=== PATIENT | male | born 1960 | race Caucasian/White ===

== ENCOUNTER 2018-09-28 08:42 | Inpatient (IN) | payer MEDICARE, MEDICAID ==
--- NOTE | 2018-09-28 08:56 | ED Physician Chart ---
ED Chief Complaint/HPI - Patient Information Date Seen:: 09/28/18 Time Seen:: 08:50 Chief Complaint:: agitation History of Present Illness:: this is a 58 yo male [facility] and treatment because of increase agitation. Allergies:: Allergies Allergy/AdvReac Type Severity Reaction Status Date / Time Sulfa (Sulfonamide Allergy Verified 09/28/18 08:47 Antibiotics) thioridazine [From Mellaril] Allergy Verified 09/28/18 08:47 Historian:: EMS, Medical Records Review:: Nurse's Note Reviewed, Transfer documents Reviewed, Patient unable to respond ED Review of Systems - Review of Systems General/Constitutional: No fever, No chills, No weight loss, No weakness, No diaphoresis, No edema, No loss of appetite, Other (this patient is unable to give a review of systems.) Skin: No skin lesions, No rash, No bruising Head: No headache, No light-headedness Eyes: No loss of vision, No pain, No diplopia ENT: No earache, No nasal drainage, No sore throat, No tinnitus Neck: No neck pain, No swelling, No thyromegaly, No stiffness, No mass noted Cardio Vascular: No chest pain, No palpitations, No PND, No orthopnea, No edema Pulmonary: No SOB, No cough, No sputum, No wheezing GI: No nausea, No vomiting, No diarrhea, No pain, No melena, No hematochezia, No constipation, No hematemesis G/U: No dysuria, No frequency, No hematuria Musculoskeletal: No bone or joint pain, No back pain, No muscle pain Endocrine: No polyuria, No polydipsia Psychiatric: No prior psych history, No depression, No anxiety, No suicidal ideation Hematopoietic: No bruising, No lymphadenopathy Allergic/Immuno: No urticaria, No angioedema Neurological: No syncope, No focal symptoms, No weakness, No paresthesia, No headache, No seizure, No dizziness, No confusion, No vertigo ED Past Medical History - Past Medical History Obtainable: Yes Past Medical History: Seizures, Dementia Family History: None Social History: Non Smoker, No Alcohol, No Drug Use, Single Surgical History: other (fistula surgery) Psychiatricy History: Dementia Medication: Reviewed Family Medical History - Family Member Mother History Unknown: Yes ED Physical Exam - Physical Examination General/Constitutional: Awake, Well-developed, well-nourished, Alert, No distress, GCS 15, Non-toxic appearing, Ambulatory Other Gen/Cons comments:: mentally disconnected Head: Atraumatic Eyes: Lids, conjuctiva normal, PERRL, EOMI Skin: Nl inspection, No rash, No skin lesions, No ecchymosis, Well hydrated, No lymphadenopathy ENMT: External ears, nose nl, Nasal exam nl, Lips, teeth, gums nl Neck: Nontender, Full ROM w/o pain, No JVD, No nuchal rigidity, No bruit, No mass, No stridor Respiratory: Nl effort/Exclusion, Clear to Auscultation, No Wheeze/Rhonchi/Rales Cardio Vascular: RRR, No murmur, gallop, rubs, NL S1 S2 GI: No tenderness/rebounding/guarding, No organomegaly, No hernia, Normal BS's, Nondistended, No mass/bruits, No McBurney tenderness : No CVA tenderness Extremities: No tenderness or effusion, Full ROM, normal strength in all extremities, No edema, Normal digits & nails Neuro/Psych: Alert/oriented, DTR's symmetric, Normal sensory exam, Normal motor strength, Judgement/insight normal (no judgement/insight ), Mood normal, Normal gait, No focal deficits Misc: Normal back, No paraspinal tenderness ED Labs/Radiology/EKG Results - Lab Results Results: Abnormal Lab Results 09/28/18 09/28/18 09/28/18 09:00 09:00 09:00 WBC 7.3 RBC 3.81 L Hgb 12.3 Hct 36.3 L MCV 95.0 MCH 32.2 H MCHC Differential 33.8 RDW 12.5 Plt Count 314 MPV 7.1 Neutrophils % 66.3 Lymphocytes % 22.1 Monocytes % 9.0 Eosinophils % 1.6 Basophils % 1.0 PT 10.6 INR 1.02 PTT (Actin FS) 29.3 Sodium 132 L Potassium 3.2 L Chloride 100 Carbon Dioxide 23.8 Anion Gap 11.4 BUN 14 Creatinine 1.5 H Est GFR ( Amer) > 60.0 Est GFR (Non-Af Amer) 50.9 BUN/Creatinine Ratio 9.3 Glucose 130 H Calcium 8.7 Total Bilirubin 0.3 AST 9 L ALT 6 L Alkaline Phosphatase 119 H Troponin I Total Protein 6.3 Albumin 3.7 L Globulin 2.6 Albumin/Globulin Ratio 1.4 09/28/18 09:00 WBC RBC Hgb Hct MCV MCH MCHC Differential RDW Plt Count MPV Neutrophils % Lymphocytes % Monocytes % Eosinophils % Basophils % PT INR PTT (Actin FS) Sodium Potassium Chloride Carbon Dioxide Anion Gap BUN Creatinine Est GFR ( Amer) Est GFR (Non-Af Amer) BUN/Creatinine Ratio Glucose Calcium Total Bilirubin AST ALT Alkaline Phosphatase Troponin I 0.01 Total Protein Albumin Globulin Albumin/Globulin Ratio - Radiology Results Results: chest x-ray = nad - EKG Interpretations EKG Time:: 08:49 Rate & Rhythm: 81, sinus [place]: left ED Assessment - Assessment General Assessment: dementia agitation ED Septic Shock - . Is Septic Shock (SBP<90, OR Lactate>4 mmol\L) present?: No ED Reassessment (Disposition) - Reassessment Reassessment Condition:: Unchanged - Diagnosis Diagnosis:: agitation dementia seizure disorder - Patient Disposition Discharge/Transfer:: Acute Care w/in this hosp Admitting Medical Physician:: Jose Gonzáles Admitting Psych Physician:: Linnette Umana Condition at Disposition:: Unchanged
[2018-09-28 09:07] LABS: % EOSINOPHILS 1.6 % (0.0-5.0); % LYMPHOCYTES 22.1 % (20.0-50.0); % NEUTROPHILS 66.3 % (40.0-80.0); BASOPHILE ABSOLUTE 0.1 Th/cumm (0-0.2); EOSINOPHILE ABSOLUTE 0.1 Th/cmm (0.1-0.4); HEMATOCRIT 36.3 % (41.0-60); HEMOGLOBIN 12.3 gm/dL (12-16); LYMPHOCYTE ABSOLUTE 1.6 Th/cmm (1.5-3.0); MEAN CORPUSCULAR HEMOGLOBIN 32.2 pg (26.0-30.0); MEAN CORPUSCULAR HGB CONC 33.8 pg (28.0-36.0); MEAN PLATELET VOLUME 7.1 fl; MONOCYTE ABSOLUTE 0.7 Th/cmm (0.3-1.0); NEUTROPHILE ABSOLUTE 4.8 Th/cmm (1.8-8.0); PLATELET COUNT 314 Th/cmm (150-400); RED BLOOD COUNT 3.81 Mil/cmm (4.30-5.70); RED CELL DISTRIBUTION WIDTH 12.5 % (11.5-20.0); WHITE BLOOD COUNT 7.3 Th/cmm (4.8-10.8)
--- NOTE | 2018-09-28 09:12 | Diagnostic Imaging Report ---
Portable chest x-ray HISTORY: Cough Heart size difficult to assess with portable technique in a poor inspiration, but appears generous. No focal pulmonary processes. No hilar or mediastinal abnormalities. IMPRESSION: 1. No acute focal pulmonary processes 2. Question cardiomegaly
[2018-09-28 09:23] LABS: INR 1.02 (0.5-1.4); PROTHROMBIN TIME (TEST) 10.6 SECONDS (9.5-11.5)
[2018-09-28 09:25] LABS: ALB/GLOB RATIO 1.4 (1.0-1.8); ALBUMIN 3.7 gm/dL (4.2-5.5); ALKALINE PHOSPHATASE 119 U/L (34-104); ANION GAP 11.4 (7.0-16.0); BILIRUBIN,TOTAL 0.3 mg/dL (0.3-1.0); BUN - UREA NITROGEN 14 mg/dL (7-25); CALCIUM SERUM 8.7 mg/dL (8.6-10.3); CARBON DIOXIDE 23.8 mEq/L (21.0-31.0); CHLORIDE 100 mEq/L (98-107); CREATININE - SERUM 1.5 mg/dL (0.7-1.3); GFR AFRICAN-AMERICAN > 60.0 ml/min (>90); GFR NON AFRICAN-AMERICAN 50.9 ml/min; GLUCOSE 130 mg/dL (70-105); POTASSIUM SERUM 3.2 mEq/L (3.5-5.1); SGOT 9 U/L (13-39); SGPT/ALT 6 U/L (7-52); SODIUM SERUM 132 mEq/L (136-145); TOTAL PROTEIN,SERUM 6.3 gm/dL (6.0-8.3)
[2018-09-28 09:43] LABS: URINE SOURCE CLEAN C
[2018-09-28 09:50] LABS: URINE BILIRUBIN SMALL (NEGATIVE); URINE BLOOD NEGATIVE (NEGATIVE); URINE GLUCOSE (UA) NEGATIVE (NEGATIVE); URINE KETONE NEGATIVE (NEGATIVE); URINE LEUKOCYTE ESTERASE LARGE (NEGATIVE); URINE MICROSCOPIC INDICATED? YES; URINE NITRATE POSITIVE (NEGATIVE); URINE PROTEIN NEGATIVE (NEGATIVE); URINE UROBILINOGEN 0.2 E.U./dL (0.2 - 1.0)
[2018-09-28] MEDS ORDERED: Potassium Chloride Elixir 20 mEq /15 mL UDC PO ONE (10:26)
[2018-09-28] MEDS ORDERED: Potassium Chloride Elixir 20 mEq /15 mL UDC ONE (10:32)
[2018-09-28 10:49] LABS: URINE COLOR YELLOW
[2018-09-28 10:50] LABS: URINE CLARITY CLOUDY (CLEAR)
[2018-09-28 11:18] LABS: URINE BACTERIA FEW /hpf (NONE SEEN); URINE EPITHELIAL CELLS FEW /lpf (FEW); URINE RBC 0-2 /hpf (0-5)
[2018-09-28 11:42] VITALS: BP 112/76
[2018-09-28] MEDS ORDERED: Pneumococcal Vaccine 0.5 mL Vial IM ONE (11:56)
[2018-09-28] MEDS ORDERED: Maalox 30 mL Cup PO PRN (12:12)
[2018-09-28] MEDS ORDERED: Magnesium Hydroxide (MOM) 30 mL UDC PO PRN (12:12)
[2018-09-28 12:23] LABS: CHOLESTEROL 223 mg/dL (<200); HDL -HIGH DENSITY LIPOPROTEIN 58 mg/dL (23-92); TRIGLYCERIDES 88 mg/dL (<150)
--- NOTE | 2018-09-28 13:44 | History & Physical ---
ADMIT DATE: 09/28/2018 CHIEF COMPLAINT: Agitation. HISTORY OF PRESENT ILLNESS: This is a 58-year-old male, long term resident, admitted to the Geropsych Unit due to 1-day history of agitation. PAST MEDICAL HISTORY: Seizures, dementia. FAMILY HISTORY: Noncontributory. SOCIAL HISTORY: The patient is a long term resident requiring 24-hour nursing care. PAST SURGICAL HISTORY: Fistula surgery. MEDICATIONS: See medication list. REVIEW OF SYSTEMS: Unable to obtain, the patient is confused. PHYSICAL EXAMINATION: GENERAL: The patient is well developed, well nourished, in no apparent distress, awake, confused. VITAL SIGNS: Temperature 99.2, heart rate 90, blood pressure 125/83, respirations 17, O2 of 98%. HEENT: Head normocephalic, atraumatic. NECK: Supple. No mass. LUNGS: Clear bilaterally. HEART: Regular rhythm. ABDOMEN: Soft, nontender. LABORATORY DATA: WBC 7.2, H and H 12.3 and 36.3, platelet of 314. Sodium 132, potassium 3.2, chloride 100, BUN 14, creatinine 1.5. The patient had a urinalysis done, positive for UTI. DIAGNOSTICS: The patient had a chest x-ray done, impression is no focal pulmonary process, question cardiomegaly. ASSESSMENT: Agitation, hypertension, dementia, acute urinary tract infection. PLAN: We will add Levaquin to treat the patient's UTI. Fall precautions will be initiated. Seizure precautions as well. Continue to monitor this patient. JOB# [id number]
[2018-09-29] MEDS: Multivitamin Tab PO SCH (09:44)
--- NOTE | 2018-09-29 14:42 | Internal Medicine Prog Note ---
Internal Medicine Subjective - Subjective Service Date: 09/29/18 Patient seen and examined:: with staff Patient is:: awake, verbal Per staff patient has:: tolerating meds Internal Medicine Objective - Results Result Diagrams: 09/28/18 09:00 09/28/18 09:00 Recent Labs: Laboratory Last Values WBC 7.3 Th/cmm (4.8-10.8) 09/28/18 09:00 RBC 3.81 Mil/cmm (4.30-5.70) L 09/28/18 09:00 Hgb 12.3 gm/dL (12-16) 09/28/18 09:00 Hct 36.3 % (41.0-60) L 09/28/18 09:00 MCV 95.0 fl (80-99) 09/28/18 09:00 MCH 32.2 pg (26.0-30.0) H 09/28/18 09:00 MCHC Differential 33.8 pg (28.0-36.0) 09/28/18 09:00 RDW 12.5 % (11.5-20.0) 09/28/18 09:00 Plt Count 314 Th/cmm (150-400) 09/28/18 09:00 MPV 7.1 fl 09/28/18 09:00 Neutrophils % 66.3 % (40.0-80.0) 09/28/18 09:00 Lymphocytes % 22.1 % (20.0-50.0) 09/28/18 09:00 Monocytes % 9.0 % (2.0-10.0) 09/28/18 09:00 Eosinophils % 1.6 % (0.0-5.0) 09/28/18 09:00 Basophils % 1.0 % (0.0-2.0) 09/28/18 09:00 PT 10.6 SECONDS (9.5-11.5) 09/28/18 09:00 INR 1.02 (0.5-1.4) 09/28/18 09:00 PTT (Actin FS) 29.3 SECONDS (26.0-38.0) 09/28/18 09:00 Sodium 132 mEq/L (136-145) L 09/28/18 09:00 Potassium 3.2 mEq/L (3.5-5.1) L 09/28/18 09:00 Chloride 100 mEq/L (98-107) 09/28/18 09:00 Carbon Dioxide 23.8 mEq/L (21.0-31.0) 09/28/18 09:00 Anion Gap 11.4 (7.0-16.0) 09/28/18 09:00 BUN 14 mg/dL (7-25) 09/28/18 09:00 Creatinine 1.5 mg/dL (0.7-1.3) H 09/28/18 09:00 Est GFR ( Amer) > 60.0 ml/min (>90) 09/28/18 09:00 Est GFR (Non-Af Amer) 50.9 ml/min 09/28/18 09:00 BUN/Creatinine Ratio 9.3 09/28/18 09:00 Glucose 130 mg/dL (70-105) H 09/28/18 09:00 Calcium 8.7 mg/dL (8.6-10.3) 09/28/18 09:00 Total Bilirubin 0.3 mg/dL (0.3-1.0) 09/28/18 09:00 AST 9 U/L (13-39) L 09/28/18 09:00 ALT 6 U/L (7-52) L 09/28/18 09:00 Alkaline Phosphatase 119 U/L (34-104) H 09/28/18 09:00 Troponin I 0.01 ng/mL (0.01-0.05) 09/28/18 09:00 Total Protein 6.3 gm/dL (6.0-8.3) 09/28/18 09:00 Albumin 3.7 gm/dL (4.2-5.5) L 09/28/18 09:00 Globulin 2.6 gm/dL 09/28/18 09:00 Albumin/Globulin Ratio 1.4 (1.0-1.8) 09/28/18 09:00 Triglycerides 88 mg/dL (<150) 09/28/18 09:30 Cholesterol 223 mg/dL (<200) H 09/28/18 09:30 LDL Cholesterol Direct 159 mg/dL (75-193) 09/28/18:30 HDL Cholesterol 58 mg/dL (23-92) 09/28/18 09:30 TSH 1.31 uIU/ml (0.34-5.60) 09/28/18 09:00 Urine Source CLEAN C 09/28/18 09:36 Urine Color YELLOW 09/28/18 09:36 Urine Clarity CLOUDY (CLEAR) 09/28/18 09:36 Urine pH 6.0 (4.6 - 8.0) 09/28/18 09:36 Ur Specific [place] 1.010 (1.005-1.030) 09/28/18 09:36 Urine Protein NEGATIVE mg/dL (NEGATIVE) 09/28/18 09:36 Urine Glucose (UA) NEGATIVE mg/dL (NEGATIVE) 09/28/18 09:36 Urine Ketones NEGATIVE mg/dL (NEGATIVE) 09/28/18 09:36 Urine Blood NEGATIVE (NEGATIVE) 09/28/18 09:36 Urine Nitrate POSITIVE (NEGATIVE) H 09/28/18 09:36 Urine Bilirubin SMALL (NEGATIVE) H 09/28/18 09:36 Urine Urobilinogen 0.2 E.U./dL (0.2 - 1.0) 09/28/18 09:36 Ur Leukocyte Esterase LARGE (NEGATIVE) H 09/28/18 09:36 Urine RBC 0-2 /hpf (0-5) H 09/28/18 09:36 Urine WBC 2-5 /hpf (0-5) 09/28/18 09:36 Ur Epithelial Cells FEW /lpf (FEW) 09/28/18 09:36 Urine Bacteria FEW /hpf (NONE SEEN) 09/28/18 09:36 - Physical Exam Vitals and I&O: Vital Signs Temp 97.5 F 09/28/18 21:11 Pulse 69 09/28/18 21:11 Resp 18 09/28/18 21:11 BP 136/70 09/28/18 21:11 Pulse Ox 97 09/28/18 21:11 Intake & Output 09/28/18 09/29/18 09/29/18 18:59 06:59 18:59 Intake Total 240 Balance 240 Weight (lbs) 170 lb Intake: Oral 240 Other: # Voids 2 Weight Source Estimated Active Medications: Current Medications Acetaminophen (Tylenol) 650 mg PO Q4HR PRN PRN Reason: Mild Pain / Temp above 100 Stop: 11/27/18 12:11 Al Hydrox/Mg Hydrox/Simethicone (Maalox) 30 ml PO Q4HR PRN PRN Reason: GI DISTRESS Stop: 11/27/18 12:11 Chlorpromazine (Thorazine) 200 mg PO BID [facility] Stop: 11/28/18 08:59 Last Admin: 09/29/18 09:43 Dose: 200 mg Escitalopram Oxalate (Lexapro) 10 mg PO DAILY [facility]; Protocol Stop: 11/28/18 08:59 Last Admin: 09/29/18 09:44 Dose: 10 mg Folic Acid (Folate) 1 mg PO DAILY [facility] Stop: 11/28/18 08:59 Last Admin: 09/29/18 09:44 Dose: 1 mg Levofloxacin (Levaquin) 500 mg PO DAILY [facility] Stop: 10/05/18 08:59 Last Admin: 09/29/18 09:43 Dose: 500 mg Lorazepam (Ativan) 0.5 mg PO Q6HR PRN; Protocol PRN Reason: Agitation Stop: 11/27/18 12:09 Magnesium Hydroxide (Milk Of Magnesia) 30 ml PO HS PRN PRN Reason: Constipation Multivitamins/Vitamin C (Theragran) 1 tab PO DAILY [facility] Stop: 11/28/18 08:59 Last Admin: 09/29/18 09:44 Dose: 1 tab Mupirocin (Bactroban Oint) 1 appl NS BID [facility] Stop: 10/04/18 09:01 Phenobarbital (Phenobarbital) 97.2 mg PO BID [facility] Stop: 11/27/18 16:59 Last Admin: 09/29/18 09:44 Dose: 97.2 mg Promethazine HCl (Phenergan) 6.25 mg PO Q4H PRN PRN Reason: Cough Stop: 11/27/18 12:02 Quetiapine Fumarate (Seroquel) 200 mg PO BID [facility]; Protocol Stop: 11/29/18 08:59 Topiramate (Topamax) 100 mg PO BID [facility] Stop: 11/27/18 16:59 Last Admin: 09/29/18 09:44 Dose: 100 mg Zolpidem Tartrate (Ambien) 5 mg PO HS PRN PRN Reason: Insomnia Stop: 11/27/18 12:11 General: alert HEENT: NC/AT, PERRLA Neck: Supple Lungs: CTAB Cardiovascular: RRR, Normal S1, Normal S2 Abdomen: soft, non-tender, non-distended Neurological: alert Internal Medicine Assmt/Plan - Assessment Assessment: ASSESSMENT: Agitation, hypertension, dementia, acute urinary tract infection. . - Plan Plan: PLAN: We will add Levaquin to treat the patient's UTI. Fall precautions will be initiated. Seizure precautions as well. Continue to monitor this patient
--- NOTE | 2018-09-29 18:33 | Psychiatric Evaluation ---
DATE OF SERVICE: 09/29/2018 HISTORY OF PRESENT ILLNESS: A 58-year-old male coming from [facility], increased agitation, seems to have history of developmental disability, autism spectrum per staff. The patient is repetitive, ruminative "look at my toenails, look at my toenails, look at my toenails, look at my toenails, look at my toenails," that is all he says. PAST PSYCHIATRIC HISTORY: Developmental disability, possibly dementia. It is unclear. FAMILY HISTORY: Noncontributory. SOCIAL HISTORY: Coming in from a [facility] facility. It is unclear what is the family's involvement there is. We will try to increase collateral. MEDICATIONS: Noted. MENTAL STATUS EXAMINATION: Stated age, repetitive, poorly oriented, not even able to tell me his name. I have to have staff confirmed that this is the correct patient, ruminative, disorganized, disoriented. No overt SI or HI, unclear psychotic symptoms. Poor impulse control. Concerns about impulsivity, striking out behaviors. PROVISIONAL DIAGNOSES: Anxiety, unspecified. Concerns for developmental disability, rule out dementia. Autism spectrum psychosis, unspecified; mood, unspecified. Under medical: Please see full H and P. ESTIMATED LENGTH OF STAY: 7-10 days. ASSESSMENT: The patient is aggressive, combative, impulsive, not safe for a lower level of care. PLAN: We will continue to monitor. Treatment plan includes group as well as milieu therapy. We will make appropriate medication adjustments. CONDITIONS FOR DISCHARGE: Improved mood, improved affect, better control of any agitation and aggressive behaviors. [facility]# [id number]
[2018-09-30] MEDS: Multivitamin Tab PO SCH (08:53)
--- NOTE | 2018-09-30 15:30 | Internal Medicine Prog Note ---
Internal Medicine Subjective - Subjective Patient seen and examined:: with staff, chart reviewed Patient is:: awake, verbal, interactive Per staff patient has:: no adverse event, no episodes of fall, eating well, tolerating meds Internal Medicine Objective - Results Result Diagrams: 09/28/18 09:00 09/28/18 09:00 Recent Labs: Laboratory Last Values WBC 7.3 Th/cmm (4.8-10.8) 09/28/18 09:00 RBC 3.81 Mil/cmm (4.30-5.70) L 09/28/18 09:00 Hgb 12.3 gm/dL (12-16) 09/28/18 09:00 Hct 36.3 % (41.0-60) L 09/28/18 09:00 MCV 95.0 fl (80-99) 09/28/18 09:00 MCH 32.2 pg (26.0-30.0) H 09/28/18 09:00 MCHC Differential 33.8 pg (28.0-36.0) 09/28/18 09:00 RDW 12.5 % (11.5-20.0) 09/28/18 09:00 Plt Count 314 Th/cmm (150-400) 09/28/18 09:00 MPV 7.1 fl 09/28/18 09:00 Neutrophils % 66.3 % (40.0-80.0) 09/28/18 09:00 Lymphocytes % 22.1 % (20.0-50.0) 09/28/18 09:00 Monocytes % 9.0 % (2.0-10.0) 09/28/18 09:00 Eosinophils % 1.6 % (0.0-5.0) 09/28/18 09:00 Basophils % 1.0 % (0.0-2.0) 09/28/18 09:00 PT 10.6 SECONDS (9.5-11.5) 09/28/18 09:00 INR 1.02 (0.5-1.4) 09/28/18 09:00 PTT (Actin FS) 29.3 SECONDS (26.0-38.0) 09/28/18 09:00 Sodium 132 mEq/L (136-145) L 09/28/18:00 Potassium 3.2 mEq/L (3.5-5.1) L 09/28/18 09:00 Chloride 100 mEq/L (98-107) 09/28/18 09:00 Carbon Dioxide 23.8 mEq/L (21.0-31.0) 09/28/18 09:00 Anion Gap 11.4 (7.0-16.0) 09/28/18 09:00 BUN 14 mg/dL (7-25) 09/28/18 09:00 Creatinine 1.5 mg/dL (0.7-1.3) H 09/28/18 09:00 Est GFR ( Amer) > 60.0 ml/min (>90) 09/28/18 09:00 Est GFR (Non-Af Amer) 50.9 ml/min 09/28/18 09:00 BUN/Creatinine Ratio 9.3 09/28/18 09:00 Glucose 130 mg/dL (70-105) H 09/28/18 09:00 Calcium 8.7 mg/dL (8.6-10.3) 09/28/18 09:00 Total Bilirubin 0.3 mg/dL (0.3-1.0) 09/28/18 09:00 AST 9 U/L (13-39) L 09/28/18 09:00 ALT 6 U/L (7-52) L 09/28/18 09:00 Alkaline Phosphatase 119 U/L (34-104) H 09/28/18 09:00 Troponin I 0.01 ng/mL (0.01-0.05) 09/28/18 09:00 Total Protein 6.3 gm/dL (6.0-8.3) 09/28/18 09:00 Albumin 3.7 gm/dL (4.2-5.5) L 09/28/18 09:00 Globulin 2.6 gm/dL 09/28/18 09:00 Albumin/Globulin Ratio 1.4 (1.0-1.8) 09/28/18 09:00 Triglycerides 88 mg/dL (<150) 09/28/18 09:30 Cholesterol 223 mg/dL (<200) H 09/28/18 09:30 LDL Cholesterol Direct 159 mg/dL (75-193) 09/28/18 09:30 HDL Cholesterol 58 mg/dL (23-92) 09/28/18 09:30 TSH 1.31 uIU/ml (0.34-5.60) 09/28/18 09:00 Urine Source CLEAN C 09/28/18 09:36 Urine Color YELLOW 09/28/18 09:36 Urine Clarity CLOUDY (CLEAR) 09/28/18 09:36 Urine pH 6.0 (4.6 - 8.0) 09/28/18 09:36 Ur Specific [place] 1.010 (1.005-1.030) 09/28/18 09:36 Urine Protein NEGATIVE mg/dL (NEGATIVE) 09/28/18 09:36 Urine Glucose (UA) NEGATIVE mg/dL (NEGATIVE) 09/28/18 09:36 Urine Ketones NEGATIVE mg/dL (NEGATIVE) 09/28/18 09:36 Urine Blood NEGATIVE (NEGATIVE) 09/28/18 09:36 Urine Nitrate POSITIVE (NEGATIVE) H 09/28/18 09:36 Urine Bilirubin SMALL (NEGATIVE) H 09/28/18 09:36 Urine Urobilinogen 0.2 E.U./dL (0.2 - 1.0) 09/28/18 09:36 Ur Leukocyte Esterase LARGE (NEGATIVE) H 09/28/18 09:36 Urine RBC 0-2 /hpf (0-5) H 09/28/18 09:36 Urine WBC 2-5 /hpf (0-5) 09/28/18 09:36 Ur Epithelial Cells FEW /lpf (FEW) 09/28/18 09:36 Urine Bacteria FEW /hpf (NONE SEEN) 09/28/18 09:36 - Physical Exam Vitals and I&O: Vital Signs Temp 96.3 F 09/30/18 14:13 Pulse 90 09/30/18 14:13 Resp 20 09/30/18 14:13 BP 126/90 09/30/18 14:13 Pulse Ox 99 09/30/18 14:13 Intake & Output 09/29/18 09/30/18 09/30/18 18:59 06:59 18:59 Intake Total 900 720 Balance 900 720 Intake: Oral 900 720 Other: # Voids 3 1 # Bowel Movements 1 Active Medications: Current Medications Acetaminophen (Tylenol) 650 mg PO Q4HR PRN PRN Reason: Mild Pain / Temp above 100 Stop: 11/27/18 12:11 Al Hydrox/Mg Hydrox/Simethicone (Maalox) 30 ml PO Q4HR PRN PRN Reason: GI DISTRESS Stop: 11/27/18 12:11 Chlorpromazine (Thorazine) 200 mg PO BID [facility] Stop: 11/28/18 08:59 Last Admin: 09/30/18 08:52 Dose: 200 mg Escitalopram Oxalate (Lexapro) 10 mg PO DAILY [facility]; Protocol Stop: 11/28/18 08:59 Last Admin: 09/30/18 08:52 Dose: 10 mg Folic Acid (Folate) 1 mg PO DAILY [facility] Stop: 11/28/18 08:59 Last Admin: 09/30/18 08:53 Dose: 1 mg Levofloxacin (Levaquin) 500 mg PO DAILY [facility] Stop: 10/05/18 08:59 Last Admin: 09/30/18 08:52 Dose: 500 mg Lorazepam (Ativan) 0.5 mg PO Q6HR PRN; Protocol PRN Reason: Agitation Stop: 11/27/18 12:09 Magnesium Hydroxide (Milk Of Magnesia) 30 ml PO HS PRN PRN Reason: Constipation Multivitamins/Vitamin C (Theragran) 1 tab PO DAILY [facility] Stop: 11/28/18 08:59 Last Admin: 09/30/18 08:53 Dose: 1 tab Mupirocin (Bactroban Oint) 1 appl NS BID [facility] Stop: 10/04/18 09:01 Last Admin: 09/30/18 08:53 Dose: 1 appl Phenobarbital (Phenobarbital) 97.2 mg PO BID [facility] Stop: 11/27/18 16:59 Last Admin: 09/30/18 08:53 Dose: 97.2 mg Promethazine HCl (Phenergan) 6.25 mg PO Q4H PRN PRN Reason: Cough Stop: 11/27/18 12:02 Quetiapine Fumarate (Seroquel) 200 mg PO BID [facility]; Protocol Stop: 11/29/18 08:59 Last Admin: 09/30/18 08:53 Dose: 200 mg Topiramate (Topamax) 100 mg PO BID [facility] Stop: 11/27/18 16:59 Last Admin: 09/30/18 08:53 Dose: 100 mg Zolpidem Tartrate (Ambien) 5 mg PO HS PRN PRN Reason: Insomnia Stop: 11/27/18 12:11 General: demented HEENT: NC/AT, PERRLA Neck: Supple Lungs: CTAB Cardiovascular: RRR, Normal S1, Normal S2 Abdomen: soft, non-tender, non-distended Extremities: excoriation Neurological: no change Internal Medicine Assmt/Plan - Assessment Assessment: Assessment Assessment: ASSESSMENT: Agitation, hypertension, dementia, acute urinary tract infection. anmia, low k, low na ri . - Plan Plan: PLAN: We will add Levaquin to treat the patient's UTI. Fall precautions will be initiated. Seizure precautions as well. Continue to monitor this patient - Plan Plan: seen bernice moeller
--- NOTE | 2018-09-30 23:48 | Progress Notes ---
DATE: 09/28/2018 Case was discussed with staff of the patient. This is a 58-year-old male who was seen on 09/28/2018. The patient is with a history of mental disability. He came from [facility]. At the [facility], he was acting aggressive, he was ruminating. He acted out yesterday because he felt cold and unable to express himself. He is unpredictable, impulsive, and unable to make safe plan for his self-care. He was seen by Dr. Hollingsworth for his initial evaluation and he is phenobarbital, Seroquel 200 mg twice a day, and Topamax. No side effects of the medication with no sedation, no nausea, no extrapyramidal symptoms. We will continue to work with the patient in group therapy, milieu therapy, and adjust the medications as needed. JOB# [id number]
[2018-10-01] MEDS: Multivitamin Tab PO SCH (09:22)
--- NOTE | 2018-10-01 11:52 | Internal Medicine Prog Note ---
Internal Medicine Subjective - Subjective Patient seen and examined:: with staff, chart reviewed Patient is:: awake, verbal, interactive Per staff patient has:: no adverse event, no episodes of fall, eating well, tolerating meds Internal Medicine Objective - Results Result Diagrams: 09/28/18 09:00 09/28/18 09:00 Recent Labs: Laboratory Last Values WBC 7.3 Th/cmm (4.8-10.8) 09/28/18 09:00 RBC 3.81 Mil/cmm (4.30-5.70) L 09/28/18 09:00 Hgb 12.3 gm/dL (12-16) 09/28/18 09:00 Hct 36.3 % (41.0-60) L 09/28/18 09:00 MCV 95.0 fl (80-99) 09/28/18 09:00 MCH 32.2 pg (26.0-30.0) H 09/28/18 09:00 MCHC Differential 33.8 pg (28.0-36.0) 09/28/18 09:00 RDW 12.5 % (11.5-20.0) 09/28/18 09:00 Plt Count 314 Th/cmm (150-400) 09/28/18 09:00 MPV 7.1 fl 09/28/18 09:00 Neutrophils % 66.3 % (40.0-80.0) 09/28/18 09:00 Lymphocytes % 22.1 % (20.0-50.0) 09/28/18 09:00 Monocytes % 9.0 % (2.0-10.0) 09/28/18 09:00 Eosinophils % 1.6 % (0.0-5.0) 09/28/18 09:00 Basophils % 1.0 % (0.0-2.0) 09/28/18 09:00 PT 10.6 SECONDS (9.5-11.5) 09/28/18 09:00 INR 1.02 (0.5-1.4) 09/28/18 09:00 PTT (Actin FS) 29.3 SECONDS (26.0-38.0) 09/28/18 09:00 Sodium 132 mEq/L (136-145) L 09/28/18:00 Potassium 3.2 mEq/L (3.5-5.1) L 09/28/18 09:00 Chloride 100 mEq/L (98-107) 09/28/18 09:00 Carbon Dioxide 23.8 mEq/L (21.0-31.0) 09/28/18 09:00 Anion Gap 11.4 (7.0-16.0) 09/28/18 09:00 BUN 14 mg/dL (7-25) 09/28/18 09:00 Creatinine 1.5 mg/dL (0.7-1.3) H 09/28/18 09:00 Est GFR ( Amer) > 60.0 ml/min (>90) 09/28/18 09:00 Est GFR (Non-Af Amer) 50.9 ml/min 09/28/18 09:00 BUN/Creatinine Ratio 9.3 09/28/18 09:00 Glucose 130 mg/dL (70-105) H 09/28/18 09:00 Calcium 8.7 mg/dL (8.6-10.3) 09/28/18 09:00 Total Bilirubin 0.3 mg/dL (0.3-1.0) 09/28/18 09:00 AST 9 U/L (13-39) L 09/28/18 09:00 ALT 6 U/L (7-52) L 09/28/18 09:00 Alkaline Phosphatase 119 U/L (34-104) H 09/28/18 09:00 Troponin I 0.01 ng/mL (0.01-0.05) 09/28/18 09:00 Total Protein 6.3 gm/dL (6.0-8.3) 09/28/18 09:00 Albumin 3.7 gm/dL (4.2-5.5) L 09/28/18 09:00 Globulin 2.6 gm/dL 09/28/18 09:00 Albumin/Globulin Ratio 1.4 (1.0-1.8) 09/28/18 09:00 Triglycerides 88 mg/dL (<150) 09/28/18 09:30 Cholesterol 223 mg/dL (<200) H 09/28/18 09:30 LDL Cholesterol Direct 159 mg/dL (75-193) 09/28/18 09:30 HDL Cholesterol 58 mg/dL (23-92) 09/28/18 09:30 TSH 1.31 uIU/ml (0.34-5.60) 09/28/18 09:00 Urine Source CLEAN C 09/28/18 09:36 Urine Color YELLOW 09/28/18 09:36 Urine Clarity CLOUDY (CLEAR) 09/28/18 09:36 Urine pH 6.0 (4.6 - 8.0) 09/28/18 09:36 Ur Specific [place] 1.010 (1.005-1.030) 09/28/18 09:36 Urine Protein NEGATIVE mg/dL (NEGATIVE) 09/28/18 09:36 Urine Glucose (UA) NEGATIVE mg/dL (NEGATIVE) 09/28/18 09:36 Urine Ketones NEGATIVE mg/dL (NEGATIVE) 09/28/18 09:36 Urine Blood NEGATIVE (NEGATIVE) 09/28/18 09:36 Urine Nitrate POSITIVE (NEGATIVE) H 09/28/18 09:36 Urine Bilirubin SMALL (NEGATIVE) H 09/28/18 09:36 Urine Urobilinogen 0.2 E.U./dL (0.2 - 1.0) 09/28/18 09:36 Ur Leukocyte Esterase LARGE (NEGATIVE) H 09/28/18 09:36 Urine RBC 0-2 /hpf (0-5) H 09/28/18 09:36 Urine WBC 2-5 /hpf (0-5) 09/28/18 09:36 Ur Epithelial Cells FEW /lpf (FEW) 09/28/18 09:36 Urine Bacteria FEW /hpf (NONE SEEN) 09/28/18 09:36 - Physical Exam Vitals and I&O: Vital Signs Temp 97.9 F 10/01/18 06:30 Pulse 90 10/01/18 06:30 Resp 20 10/01/18 06:30 BP 126/54 10/01/18 06:30 Pulse Ox 97 10/01/18 06:30 Intake & Output 09/30/18 10/01/18 10/01/18 18:59 06:59 18:59 Intake Total 480 Balance 480 Intake: Oral 480 Other: # Voids 1 1 # Bowel Movements 0 Active Medications: Current Medications Acetaminophen (Tylenol) 650 mg PO Q4HR PRN PRN Reason: Mild Pain / Temp above 100 Stop: 11/27/18 12:11 Al Hydrox/Mg Hydrox/Simethicone (Maalox) 30 ml PO Q4HR PRN PRN Reason: GI DISTRESS Stop: 11/27/18 12:11 Chlorpromazine (Thorazine) 200 mg PO BID [facility] Stop: 11/28/18 08:59 Last Admin: 10/01/18 09:21 Dose: 200 mg Escitalopram Oxalate (Lexapro) 10 mg PO DAILY [facility]; Protocol Stop: 11/28/18 08:59 Last Admin: 10/01/18 09:22 Dose: 10 mg Folic Acid (Folate) 1 mg PO DAILY [facility] Stop: 11/28/18 08:59 Last Admin: 10/01/18 09:22 Dose: 1 mg Levofloxacin (Levaquin) 500 mg PO DAILY [facility] Stop: 10/05/18 08:59 Last Admin: 10/01/18 09:21 Dose: 500 mg Lorazepam (Ativan) 0.5 mg PO Q6HR PRN; Protocol PRN Reason: Agitation Stop: 11/27/18 12:09 Magnesium Hydroxide (Milk Of Magnesia) 30 ml PO HS PRN PRN Reason: Constipation Multivitamins/Vitamin C (Theragran) 1 tab PO DAILY [facility] Stop: 11/28/18 08:59 Last Admin: 10/01/18 09:22 Dose: 1 tab Mupirocin (Bactroban Oint) 1 appl NS BID [facility] Stop: 10/04/18 09:01 Last Admin: 10/01/18 09:22 Dose: 1 appl Phenobarbital (Phenobarbital) 97.2 mg PO BID [facility] Stop: 11/27/18 16:59 Last Admin: 10/01/18 09:22 Dose: 97.2 mg Promethazine HCl (Phenergan) 6.25 mg PO Q4H PRN PRN Reason: Cough Stop: 11/27/18 12:02 Quetiapine Fumarate (Seroquel) 200 mg PO BID [facility]; Protocol Stop: 11/29/18 08:59 Last Admin: 10/01/18 09:22 Dose: 200 mg Topiramate (Topamax) 100 mg PO BID [facility] Stop: 11/27/18 16:59 Last Admin: 10/01/18 09:22 Dose: 100 mg Zolpidem Tartrate (Ambien) 5 mg PO HS PRN PRN Reason: Insomnia Stop: 11/27/18 12:11 General: demented HEENT: NC/AT, PERRLA Neck: Supple Lungs: CTAB Cardiovascular: RRR, Normal S1, Normal S2 Abdomen: soft, non-tender, non-distended Extremities: excoriation Neurological: no change Internal Medicine Assmt/Plan - Assessment Assessment: Assessment Assessment: ASSESSMENT: Agitation, hypertension, dementia, acute urinary tract infection. anmia, low k, low na ri . - Plan Plan: PLAN: We will add Levaquin to treat the patient's UTI. Fall precautions will be initiated. Seizure precautions as well. Continue to monitor this patient - Plan Plan: seen bernice moeller
--- NOTE | 2018-10-01 22:21 | Progress Notes ---
DATE: 10/01/2018 Case was discussed with staff of the patient and reviewed records. The patient is developmentally disabled with very poor insight. He sometimes takes his medication and sometimes does not; however, in general, responding better to redirection. He needs help with his ADLs. No side effects to the medication, no sedation, no nausea, and no extrapyramidal symptoms. His lab work showed CBC with low red cells and low hematocrit, but hemoglobin within normal range, MCH is high, the rest within normal range. His chemistry panel with low sodium, low potassium, high creatinine, and high blood sugar, the rest within normal range. Urinalysis positive for nitrites, ____ bilirubin and leukocytic esterase and the medical doctor will be handling those. We will continue to work with the patient in group therapy, milieu therapy, and adjust medications as needed. JOB# [id number]
[2018-10-02] MEDS: Multivitamin Tab PO SCH (09:41)
--- NOTE | 2018-10-02 12:15 | Internal Medicine Prog Note ---
Internal Medicine Subjective - Subjective Patient seen and examined:: with staff, chart reviewed Patient is:: awake, verbal, interactive Per staff patient has:: no adverse event, no episodes of fall, eating well, tolerating meds Internal Medicine Objective - Results Result Diagrams: 09/28/18 09:00 09/28/18 09:00 Recent Labs: Laboratory Last Values WBC 7.3 Th/cmm (4.8-10.8) 09/28/18 09:00 RBC 3.81 Mil/cmm (4.30-5.70) L 09/28/18 09:00 Hgb 12.3 gm/dL (12-16) 09/28/18 09:00 Hct 36.3 % (41.0-60) L 09/28/18 09:00 MCV 95.0 fl (80-99) 09/28/18 09:00 MCH 32.2 pg (26.0-30.0) H 09/28/18 09:00 MCHC Differential 33.8 pg (28.0-36.0) 09/28/18 09:00 RDW 12.5 % (11.5-20.0) 09/28/18 09:00 Plt Count 314 Th/cmm (150-400) 09/28/18 09:00 MPV 7.1 fl 09/28/18 09:00 Neutrophils % 66.3 % (40.0-80.0) 09/28/18 09:00 Lymphocytes % 22.1 % (20.0-50.0) 09/28/18 09:00 Monocytes % 9.0 % (2.0-10.0) 09/28/18 09:00 Eosinophils % 1.6 % (0.0-5.0) 09/28/18 09:00 Basophils % 1.0 % (0.0-2.0) 09/28/18 09:00 PT 10.6 SECONDS (9.5-11.5) 09/28/18 09:00 INR 1.02 (0.5-1.4) 09/28/18 09:00 PTT (Actin FS) 29.3 SECONDS (26.0-38.0) 09/28/18 09:00 Sodium 132 mEq/L (136-145) L 09/28/18:00 Potassium 3.2 mEq/L (3.5-5.1) L 09/28/18 09:00 Chloride 100 mEq/L (98-107) 09/28/18 09:00 Carbon Dioxide 23.8 mEq/L (21.0-31.0) 09/28/18 09:00 Anion Gap 11.4 (7.0-16.0) 09/28/18 09:00 BUN 14 mg/dL (7-25) 09/28/18 09:00 Creatinine 1.5 mg/dL (0.7-1.3) H 09/28/18 09:00 Est GFR ( Amer) > 60.0 ml/min (>90) 09/28/18 09:00 Est GFR (Non-Af Amer) 50.9 ml/min 09/28/18 09:00 BUN/Creatinine Ratio 9.3 09/28/18 09:00 Glucose 130 mg/dL (70-105) H 09/28/18 09:00 Calcium 8.7 mg/dL (8.6-10.3) 09/28/18 09:00 Total Bilirubin 0.3 mg/dL (0.3-1.0) 09/28/18 09:00 AST 9 U/L (13-39) L 09/28/18 09:00 ALT 6 U/L (7-52) L 09/28/18 09:00 Alkaline Phosphatase 119 U/L (34-104) H 09/28/18 09:00 Troponin I 0.01 ng/mL (0.01-0.05) 09/28/18 09:00 Total Protein 6.3 gm/dL (6.0-8.3) 09/28/18 09:00 Albumin 3.7 gm/dL (4.2-5.5) L 09/28/18 09:00 Globulin 2.6 gm/dL 09/28/18 09:00 Albumin/Globulin Ratio 1.4 (1.0-1.8) 09/28/18 09:00 Triglycerides 88 mg/dL (<150) 09/28/18 09:30 Cholesterol 223 mg/dL (<200) H 09/28/18 09:30 LDL Cholesterol Direct 159 mg/dL (75-193) 09/28/18 09:30 HDL Cholesterol 58 mg/dL (23-92) 09/28/18 09:30 TSH 1.31 uIU/ml (0.34-5.60) 09/28/18 09:00 Urine Source CLEAN C 09/28/18 09:36 Urine Color YELLOW 09/28/18 09:36 Urine Clarity CLOUDY (CLEAR) 09/28/18 09:36 Urine pH 6.0 (4.6 - 8.0) 09/28/18 09:36 Ur Specific [place] 1.010 (1.005-1.030) 09/28/18 09:36 Urine Protein NEGATIVE mg/dL (NEGATIVE) 09/28/18 09:36 Urine Glucose (UA) NEGATIVE mg/dL (NEGATIVE) 09/28/18 09:36 Urine Ketones NEGATIVE mg/dL (NEGATIVE) 09/28/18 09:36 Urine Blood NEGATIVE (NEGATIVE) 09/28/18 09:36 Urine Nitrate POSITIVE (NEGATIVE) H 09/28/18 09:36 Urine Bilirubin SMALL (NEGATIVE) H 09/28/18 09:36 Urine Urobilinogen 0.2 E.U./dL (0.2 - 1.0) 09/28/18 09:36 Ur Leukocyte Esterase LARGE (NEGATIVE) H 09/28/18 09:36 Urine RBC 0-2 /hpf (0-5) H 09/28/18 09:36 Urine WBC 2-5 /hpf (0-5) 09/28/18 09:36 Ur Epithelial Cells FEW /lpf (FEW) 09/28/18 09:36 Urine Bacteria FEW /hpf (NONE SEEN) 09/28/18 09:36 - Physical Exam Vitals and I&O: Vital Signs Temp 0 F 10/01/18 20:51 Pulse 88 10/01/18 14:00 Resp 20 10/01/18 14:00 BP 131/64 10/01/18 14:00 Pulse Ox 96 10/01/18 14:00 Intake & Output 10/01/18 10/02/18 10/02/18 18:59 06:59 18:59 Intake Total 800 360 Balance 800 360 Weight (lbs) 77.111 kg Intake: Oral 800 360 Other: # Voids 3 1 # Bowel Movements 1 0 Weight Source Bedscale Active Medications: Current Medications Acetaminophen (Tylenol) 650 mg PO Q4HR PRN PRN Reason: Mild Pain / Temp above 100 Stop: 11/27/18 12:11 Al Hydrox/Mg Hydrox/Simethicone (Maalox) 30 ml PO Q4HR PRN PRN Reason: GI DISTRESS Stop: 11/27/18 12:11 Chlorpromazine (Thorazine) 200 mg PO BID [facility] Stop: 11/28/18 08:59 Last Admin: 10/02/18 09:41 Dose: 200 mg Escitalopram Oxalate (Lexapro) 10 mg PO DAILY [facility]; Protocol Stop: 11/28/18 08:59 Last Admin: 10/02/18 09:41 Dose: 10 mg Folic Acid (Folate) 1 mg PO DAILY [facility] Stop: 11/28/18 08:59 Last Admin: 10/02/18 09:41 Dose: 1 mg Levofloxacin (Levaquin) 500 mg PO DAILY [facility] Stop: 10/05/18 08:59 Last Admin: 10/02/18 09:40 Dose: 500 mg Lorazepam (Ativan) 0.5 mg PO Q6HR PRN; Protocol PRN Reason: Agitation Stop: 11/27/18 12:09 Last Admin: 10/01/18 20:50 Dose: 0.5 mg Magnesium Hydroxide (Milk Of Magnesia) 30 ml PO HS PRN PRN Reason: Constipation Multivitamins/Vitamin C (Theragran) 1 tab PO DAILY [facility] Stop: 11/28/18 08:59 Last Admin: 10/02/18 09:41 Dose: 1 tab Mupirocin (Bactroban Oint) 1 appl NS BID [facility] Stop: 10/04/18 09:01 Last Admin: 10/02/18 09:43 Dose: 1 appl Phenobarbital (Phenobarbital) 97.2 mg PO BID [facility] Stop: 11/27/18 16:59 Last Admin: 10/02/18 09:42 Dose: 97.2 mg Promethazine HCl (Phenergan) 6.25 mg PO Q4H PRN PRN Reason: Cough Stop: 11/27/18 12:02 Quetiapine Fumarate (Seroquel) 200 mg PO BID [facility]; Protocol Stop: 11/29/18 08:59 Last Admin: 10/02/18 09:42 Dose: 200 mg Topiramate (Topamax) 100 mg PO BID [facility] Stop: 11/27/18 16:59 Last Admin: 10/02/18 09:43 Dose: 100 mg Zolpidem Tartrate (Ambien) 5 mg PO HS PRN PRN Reason: Insomnia Stop: 11/27/18 12:11 General: demented HEENT: NC/AT, PERRLA Neck: Supple Lungs: CTAB Cardiovascular: RRR, Normal S1, Normal S2 Abdomen: soft, non-tender, non-distended Extremities: excoriation Neurological: no change Internal Medicine Assmt/Plan - Assessment Assessment: Assessment Assessment: ASSESSMENT: Agitation, hypertension, dementia, acute urinary tract infection. anmia, low k, low na ri . - Plan Plan: PLAN: We will add Levaquin to treat the patient's UTI. Fall precautions will be initiated. Seizure precautions as well. Continue to monitor this patient - Plan Plan: seen w sunni mccloud levaquin 2
[2018-10-03] MEDS: Multivitamin Tab PO SCH (08:38)
--- NOTE | 2018-10-03 12:17 | Progress Notes ---
DATE: 10/03/2018 SUBJECTIVE: Case was discussed with staff of the patient, reviewed records. The patient continues to do the same unpredictable, impulsive, needing redirection; however, he is mentally disabled, does not understand better, sleeping well, eating well. No suicidal ideation, no homicidal ideation now, no acting out. We will continue the patient with group therapy, milieu therapy, and adjust medication as needed. [facility]# [id number]
--- NOTE | 2018-10-03 12:18 | Progress Notes ---
DATE: 10/03/2018 Case was discussed with staff of the patient, reviewed records. This is a late note for 10/02/2018. The patient continues to be unpredictable, impulsive, not making sense and internally preoccupied. He is sleeping well, eating well. No side effects of the medication. No sedation, no nausea, no extrapyramidal symptoms and we will continue to work with the patient in group therapy, milieu therapy, and adjust medications as needed. JOB# [id number]
--- NOTE | 2018-10-03 13:18 | Internal Medicine Prog Note ---
Internal Medicine Subjective - Subjective Patient seen and examined:: with staff, chart reviewed Patient is:: awake, verbal, interactive Per staff patient has:: no adverse event, no episodes of fall, eating well, tolerating meds Internal Medicine Objective - Results Result Diagrams: 09/28/18 09:00 09/28/18 09:00 Recent Labs: Laboratory Last Values WBC 7.3 Th/cmm (4.8-10.8) 09/28/18 09:00 RBC 3.81 Mil/cmm (4.30-5.70) L 09/28/18 09:00 Hgb 12.3 gm/dL (12-16) 09/28/18 09:00 Hct 36.3 % (41.0-60) L 09/28/18 09:00 MCV 95.0 fl (80-99) 09/28/18 09:00 MCH 32.2 pg (26.0-30.0) H 09/28/18 09:00 MCHC Differential 33.8 pg (28.0-36.0) 09/28/18 09:00 RDW 12.5 % (11.5-20.0) 09/28/18 09:00 Plt Count 314 Th/cmm (150-400) 09/28/18 09:00 MPV 7.1 fl 09/28/18 09:00 Neutrophils % 66.3 % (40.0-80.0) 09/28/18 09:00 Lymphocytes % 22.1 % (20.0-50.0) 09/28/18 09:00 Monocytes % 9.0 % (2.0-10.0) 09/28/18 09:00 Eosinophils % 1.6 % (0.0-5.0) 09/28/18 09:00 Basophils % 1.0 % (0.0-2.0) 09/28/18 09:00 PT 10.6 SECONDS (9.5-11.5) 09/28/18 09:00 INR 1.02 (0.5-1.4) 09/28/18 09:00 PTT (Actin FS) 29.3 SECONDS (26.0-38.0) 09/28/18 09:00 Sodium 132 mEq/L (136-145) L 09/28/18:00 Potassium 3.2 mEq/L (3.5-5.1) L 09/28/18 09:00 Chloride 100 mEq/L (98-107) 09/28/18 09:00 Carbon Dioxide 23.8 mEq/L (21.0-31.0) 09/28/18 09:00 Anion Gap 11.4 (7.0-16.0) 09/28/18 09:00 BUN 14 mg/dL (7-25) 09/28/18 09:00 Creatinine 1.5 mg/dL (0.7-1.3) H 09/28/18 09:00 Est GFR ( Amer) > 60.0 ml/min (>90) 09/28/18 09:00 Est GFR (Non-Af Amer) 50.9 ml/min 09/28/18 09:00 BUN/Creatinine Ratio 9.3 09/28/18 09:00 Glucose 130 mg/dL (70-105) H 09/28/18 09:00 Calcium 8.7 mg/dL (8.6-10.3) 09/28/18 09:00 Total Bilirubin 0.3 mg/dL (0.3-1.0) 09/28/18 09:00 AST 9 U/L (13-39) L 09/28/18 09:00 ALT 6 U/L (7-52) L 09/28/18 09:00 Alkaline Phosphatase 119 U/L (34-104) H 09/28/18 09:00 Troponin I 0.01 ng/mL (0.01-0.05) 09/28/18 09:00 Total Protein 6.3 gm/dL (6.0-8.3) 09/28/18 09:00 Albumin 3.7 gm/dL (4.2-5.5) L 09/28/18 09:00 Globulin 2.6 gm/dL 09/28/18 09:00 Albumin/Globulin Ratio 1.4 (1.0-1.8) 09/28/18 09:00 Triglycerides 88 mg/dL (<150) 09/28/18 09:30 Cholesterol 223 mg/dL (<200) H 09/28/18 09:30 LDL Cholesterol Direct 159 mg/dL (75-193) 09/28/18 09:30 HDL Cholesterol 58 mg/dL (23-92) 09/28/18 09:30 TSH 1.31 uIU/ml (0.34-5.60) 09/28/18 09:00 Urine Source CLEAN C 09/28/18 09:36 Urine Color YELLOW 09/28/18 09:36 Urine Clarity CLOUDY (CLEAR) 09/28/18 09:36 Urine pH 6.0 (4.6 - 8.0) 09/28/18 09:36 Ur Specific [place] 1.010 (1.005-1.030) 09/28/18 09:36 Urine Protein NEGATIVE mg/dL (NEGATIVE) 09/28/18 09:36 Urine Glucose (UA) NEGATIVE mg/dL (NEGATIVE) 09/28/18 09:36 Urine Ketones NEGATIVE mg/dL (NEGATIVE) 09/28/18 09:36 Urine Blood NEGATIVE (NEGATIVE) 09/28/18 09:36 Urine Nitrate POSITIVE (NEGATIVE) H 09/28/18 09:36 Urine Bilirubin SMALL (NEGATIVE) H 09/28/18 09:36 Urine Urobilinogen 0.2 E.U./dL (0.2 - 1.0) 09/28/18 09:36 Ur Leukocyte Esterase LARGE (NEGATIVE) H 09/28/18 09:36 Urine RBC 0-2 /hpf (0-5) H 09/28/18 09:36 Urine WBC 2-5 /hpf (0-5) 09/28/18 09:36 Ur Epithelial Cells FEW /lpf (FEW) 09/28/18 09:36 Urine Bacteria FEW /hpf (NONE SEEN) 09/28/18 09:36 - Physical Exam Vitals and I&O: Vital Signs Temp 98.6 F 10/02/18 20:58 Pulse 92 10/02/18 20:58 Resp 19 10/03/18 08:00 BP 110/65 10/02/18 20:58 Pulse Ox 96 10/02/18 20:58 Intake & Output 10/02/18 10/03/18 10/03/18 18:59 06:59 18:59 Intake Total 900 Balance 900 Intake: Oral 900 Other: # Voids 4 # Bowel Movements 1 Active Medications: Current Medications Acetaminophen (Tylenol) 650 mg PO Q4HR PRN PRN Reason: Mild Pain / Temp above 100 Stop: 11/27/18 12:11 Al Hydrox/Mg Hydrox/Simethicone (Maalox) 30 ml PO Q4HR PRN PRN Reason: GI DISTRESS Stop: 11/27/18 12:11 Last Admin: 10/02/18 21:22 Dose: 30 ml Chlorpromazine (Thorazine) 200 mg PO BID [facility] Stop: 11/28/18 08:59 Last Admin: 10/03/18 08:34 Dose: 200 mg Escitalopram Oxalate (Lexapro) 10 mg PO DAILY [facility]; Protocol Stop: 11/28/18 08:59 Last Admin: 10/03/18 08:36 Dose: 10 mg Folic Acid (Folate) 1 mg PO DAILY [facility] Stop: 11/28/18 08:59 Last Admin: 10/03/18 08:38 Dose: 1 mg Lorazepam (Ativan) 0.5 mg PO Q6HR PRN; Protocol PRN Reason: Agitation Stop: 11/27/18 12:09 Last Admin: 10/01/18 20:50 Dose: 0.5 mg Magnesium Hydroxide (Milk Of Magnesia) 30 ml PO HS PRN PRN Reason: Constipation Multivitamins/Vitamin C (Theragran) 1 tab PO DAILY [facility] Stop: 11/28/18 08:59 Last Admin: 10/03/18 08:38 Dose: 1 tab Mupirocin (Bactroban Oint) 1 appl NS BID [facility] Stop: 10/04/18 09:01 Last Admin: 10/03/18 08:32 Dose: 1 appl Phenobarbital (Phenobarbital) 97.2 mg PO BID [facility] Stop: 11/27/18 16:59 Last Admin: 10/03/18 08:37 Dose: 32.4 mg Promethazine HCl (Phenergan) 6.25 mg PO Q4H PRN PRN Reason: Cough Stop: 11/27/18 12:02 Quetiapine Fumarate (Seroquel) 200 mg PO BID [facility]; Protocol Stop: 11/29/18 08:59 Last Admin: 10/03/18 08:40 Dose: 200 mg Topiramate (Topamax) 100 mg PO BID [facility] Stop: 11/27/18 16:59 Last Admin: 10/03/18 08:40 Dose: 100 mg Zolpidem Tartrate (Ambien) 5 mg PO HS PRN PRN Reason: Insomnia Stop: 11/27/18 12:11 Last Admin: 10/02/18 21:22 Dose: 5 mg General: demented HEENT: NC/AT, PERRLA Neck: Supple Lungs: CTAB Cardiovascular: RRR, Normal S1, Normal S2 Abdomen: soft, non-tender, non-distended Extremities: excoriation Neurological: no change Internal Medicine Assmt/Plan - Assessment Assessment: Assessment Assessment: ASSESSMENT: Agitation, hypertension, dementia, acute urinary tract infection. anmia, low k, low na ri . - Plan Plan: PLAN: We will add Levaquin to treat the patient's UTI. Fall precautions will be initiated. Seizure precautions as well. Continue to monitor this patient - Plan Plan: seen w rn ame levaquin 2-20 Nutritional Asmnt/Malnutr-PDOC - Dietary Evaluation Malnutrition Findings (Please click <Entered> for more info): Nutritional Asmnt/Malnutrition Start: 10/02/18 15: 30 Text: Status: Complete Freq: Protocol: Document 10/02/18 15:30 LCHENG (Rec: 10/02/18 15:39 LCHENG [email or web address]) Nutritional Asmnt/Malnutrition Patient General Information Nutritional Screening Moderate Risk Diagnosis psychosis, agitation Pertinent Medical Hx/Surgical Hx seizures, dementia, fistula surgery Subjective Information Pt seen eating in his room, confused, not able to answer RD questions. Per EMR, PO intake 25-75%. Current Diet Order/ Nutrition Support low sodium Pertinent Medications folate, theragran, seroquel Pertinent Labs 09/28 Na 132, K 3.2, Cr 1.5, glucose 130, Alb 3.7 Nutritional Hx/Data Height 1.7 m Height (Calculated Centimeters) 170.2 Current Weight (lbs) 77.111 kg Weight (Calculated Kilograms) 77.1 Weight (Calculated Grams) 25773.7 [place] Body Weight 148 Body Mass Index (BMI) 26.6 Weight Status Overweight GI Symptoms GI Symptoms None Last BM 10/01 Difficult in: None Skin Integrity/Comment: dryness Current %PO Good (75-100%) Estimated Nutritional Goals BEE in Kcals: Using Current wt Calories/Kcals/Kg 23-27 Kcals Calculated 9278-6327 Protein: Using Current wt Protein g/k.8-1 Protein Calculated 61-77 Fluid: ml 1771-2079ml (1ml/kcal) Nutritional Problem No current Nutrition Prob Problem N/A Malnutrition Alert Is there a minimum of two criteria No selected? Query Text:Check all the applicable criteria. A minimum of two criteria are recommended for diagnosis of either severe or non-severe malnutrition. Malnutrition Related to Morbid Obesity Malnutrition related to morbid obesity No Intervention/Recommendation Comments 1. Continue with low sodium diet as ordered. 2. Monitor PO intake, wt, labs and skin integrity 3. F/U as low risk in 7 days Expected Outcomes/Goals Expected Outcomes/Goals 1. PO intake to meet at least 75% of nutritional needs. 2. Wt stability, skin to remain intact, labs to approach WNL.
[2018-10-04] MEDS: Multivitamin Tab PO SCH (09:08)
--- NOTE | 2018-10-04 12:30 | Internal Medicine Prog Note ---
Internal Medicine Subjective - Subjective Patient seen and examined:: with staff, chart reviewed Patient is:: awake, verbal, interactive Per staff patient has:: no adverse event, no episodes of fall, eating well, tolerating meds Internal Medicine Objective - Results Result Diagrams: 09/28/18 09:00 09/28/18 09:00 Recent Labs: Laboratory Last Values WBC 7.3 Th/cmm (4.8-10.8) 09/28/18 09:00 RBC 3.81 Mil/cmm (4.30-5.70) L 09/28/18 09:00 Hgb 12.3 gm/dL (12-16) 09/28/18 09:00 Hct 36.3 % (41.0-60) L 09/28/18 09:00 MCV 95.0 fl (80-99) 09/28/18 09:00 MCH 32.2 pg (26.0-30.0) H 09/28/18 09:00 MCHC Differential 33.8 pg (28.0-36.0) 09/28/18 09:00 RDW 12.5 % (11.5-20.0) 09/28/18 09:00 Plt Count 314 Th/cmm (150-400) 09/28/18 09:00 MPV 7.1 fl 09/28/18 09:00 Neutrophils % 66.3 % (40.0-80.0) 09/28/18 09:00 Lymphocytes % 22.1 % (20.0-50.0) 09/28/18 09:00 Monocytes % 9.0 % (2.0-10.0) 09/28/18 09:00 Eosinophils % 1.6 % (0.0-5.0) 09/28/18 09:00 Basophils % 1.0 % (0.0-2.0) 09/28/18 09:00 PT 10.6 SECONDS (9.5-11.5) 09/28/18 09:00 INR 1.02 (0.5-1.4) 09/28/18 09:00 PTT (Actin FS) 29.3 SECONDS (26.0-38.0) 09/28/18 09:00 Sodium 132 mEq/L (136-145) L 09/28/18:00 Potassium 3.2 mEq/L (3.5-5.1) L 09/28/18 09:00 Chloride 100 mEq/L (98-107) 09/28/18 09:00 Carbon Dioxide 23.8 mEq/L (21.0-31.0) 09/28/18 09:00 Anion Gap 11.4 (7.0-16.0) 09/28/18 09:00 BUN 14 mg/dL (7-25) 09/28/18 09:00 Creatinine 1.5 mg/dL (0.7-1.3) H 09/28/18 09:00 Est GFR ( Amer) > 60.0 ml/min (>90) 09/28/18 09:00 Est GFR (Non-Af Amer) 50.9 ml/min 09/28/18 09:00 BUN/Creatinine Ratio 9.3 09/28/18 09:00 Glucose 130 mg/dL (70-105) H 09/28/18 09:00 Calcium 8.7 mg/dL (8.6-10.3) 09/28/18 09:00 Total Bilirubin 0.3 mg/dL (0.3-1.0) 09/28/18 09:00 AST 9 U/L (13-39) L 09/28/18 09:00 ALT 6 U/L (7-52) L 09/28/18 09:00 Alkaline Phosphatase 119 U/L (34-104) H 09/28/18 09:00 Troponin I 0.01 ng/mL (0.01-0.05) 09/28/18 09:00 Total Protein 6.3 gm/dL (6.0-8.3) 09/28/18 09:00 Albumin 3.7 gm/dL (4.2-5.5) L 09/28/18 09:00 Globulin 2.6 gm/dL 09/28/18 09:00 Albumin/Globulin Ratio 1.4 (1.0-1.8) 09/28/18 09:00 Triglycerides 88 mg/dL (<150) 09/28/18 09:30 Cholesterol 223 mg/dL (<200) H 09/28/18 09:30 LDL Cholesterol Direct 159 mg/dL (75-193) 09/28/18 09:30 HDL Cholesterol 58 mg/dL (23-92) 09/28/18 09:30 TSH 1.31 uIU/ml (0.34-5.60) 09/28/18 09:00 Urine Source CLEAN C 09/28/18 09:36 Urine Color YELLOW 09/28/18 09:36 Urine Clarity CLOUDY (CLEAR) 09/28/18 09:36 Urine pH 6.0 (4.6 - 8.0) 09/28/18 09:36 Ur Specific [place] 1.010 (1.005-1.030) 09/28/18 09:36 Urine Protein NEGATIVE mg/dL (NEGATIVE) 09/28/18 09:36 Urine Glucose (UA) NEGATIVE mg/dL (NEGATIVE) 09/28/18 09:36 Urine Ketones NEGATIVE mg/dL (NEGATIVE) 09/28/18 09:36 Urine Blood NEGATIVE (NEGATIVE) 09/28/18 09:36 Urine Nitrate POSITIVE (NEGATIVE) H 09/28/18 09:36 Urine Bilirubin SMALL (NEGATIVE) H 09/28/18 09:36 Urine Urobilinogen 0.2 E.U./dL (0.2 - 1.0) 09/28/18 09:36 Ur Leukocyte Esterase LARGE (NEGATIVE) H 09/28/18 09:36 Urine RBC 0-2 /hpf (0-5) H 09/28/18 09:36 Urine WBC 2-5 /hpf (0-5) 09/28/18 09:36 Ur Epithelial Cells FEW /lpf (FEW) 09/28/18 09:36 Urine Bacteria FEW /hpf (NONE SEEN) 09/28/18 09:36 - Physical Exam Vitals and I&O: Vital Signs Temp 97.6 F 10/04/18 06:30 Pulse 81 10/04/18 06:30 Resp 19 10/04/18 06:30 BP 141/73 10/04/18 06:30 Pulse Ox 98 10/04/18 06:30 Intake & Output 10/03/18 10/04/18 10/04/18 18:59 06:59 18:59 Intake Total 1200 480 Balance 1200 480 Intake: Oral 1200 480 Other: # Voids 1 # Bowel Movements 1 Active Medications: Current Medications Acetaminophen (Tylenol) 650 mg PO Q4HR PRN PRN Reason: Mild Pain / Temp above 100 Stop: 11/27/18 12:11 Last Admin: 10/03/18 18:11 Dose: 650 mg Al Hydrox/Mg Hydrox/Simethicone (Maalox) 30 ml PO Q4HR PRN PRN Reason: GI DISTRESS Stop: 11/27/18 12:11 Last Admin: 10/02/18 21:22 Dose: 30 ml Chlorpromazine (Thorazine) 200 mg PO BID [facility] Stop: 11/28/18 08:59 Last Admin: 10/04/18 09:05 Dose: 200 mg Escitalopram Oxalate (Lexapro) 10 mg PO DAILY [facility]; Protocol Stop: 11/28/18 08:59 Last Admin: 10/04/18 09:06 Dose: 10 mg Folic Acid (Folate) 1 mg PO DAILY [facility] Stop: 11/28/18 08:59 Last Admin: 10/04/18 09:07 Dose: 1 mg Lorazepam (Ativan) 0.5 mg PO Q6HR PRN; Protocol PRN Reason: Agitation Stop: 11/27/18 12:09 Last Admin: 10/04/18 09:04 Dose: 0.5 mg Magnesium Hydroxide (Milk Of Magnesia) 30 ml PO HS PRN PRN Reason: Constipation Multivitamins/Vitamin C (Theragran) 1 tab PO DAILY [facility] Stop: 11/28/18 08:59 Last Admin: 10/04/18 09:08 Dose: 1 tab Phenobarbital (Phenobarbital) 97.2 mg PO BID [facility] Stop: 11/27/18 16:59 Last Admin: 10/04/18 09:07 Dose: 97.2 mg Promethazine HCl (Phenergan) 6.25 mg PO Q4H PRN PRN Reason: Cough Stop: 11/27/18 12:02 Quetiapine Fumarate (Seroquel) 200 mg PO BID [facility]; Protocol Stop: 11/29/18 08:59 Last Admin: 10/04/18 09:05 Dose: 200 mg Topiramate (Topamax) 100 mg PO BID [facility] Stop: 11/27/18 16:59 Last Admin: 10/04/18 09:08 Dose: 100 mg Zolpidem Tartrate (Ambien) 5 mg PO HS PRN PRN Reason: Insomnia Stop: 11/27/18 12:11 Last Admin: 10/03/18 20:47 Dose: 5 mg General: demented HEENT: NC/AT, PERRLA Neck: Supple Lungs: CTAB Cardiovascular: RRR, Normal S1, Normal S2 Abdomen: soft, non-tender, non-distended Extremities: excoriation Neurological: no change Internal Medicine Assmt/Plan - Assessment Assessment: Assessment Assessment: ASSESSMENT: Agitation, hypertension, dementia, acute urinary tract infection. anmia, low k, low na ri . - Plan Plan: PLAN: We will add Levaquin to treat the patient's UTI. Fall precautions will be initiated. Seizure precautions as well. Continue to monitor this patient - Plan Plan: seen w sunni mccloud levaquin 2-20 Nutritional Asmnt/Malnutr-PDOC - Dietary Evaluation Malnutrition Findings (Please click <Entered> for more info): Nutritional Asmnt/Malnutrition Start: 10/02/18 15: 30 Text: Status: Complete Freq: Protocol: Document 10/02/18 15:30 LCHENG (Rec: 10/02/18 15:39 LCHENG [email or web address]) Nutritional Asmnt/Malnutrition Patient General Information Nutritional Screening Moderate Risk Diagnosis psychosis, agitation Pertinent Medical Hx/Surgical Hx seizures, dementia, fistula surgery Subjective Information Pt seen eating in his room, confused, not able to answer RD questions. Per EMR, PO intake 25-75%. Current Diet Order/ Nutrition Support low sodium Pertinent Medications folate, theragran, seroquel Pertinent Labs 09/28 Na 132, K 3.2, Cr 1.5, glucose 130, Alb 3.7 Nutritional Hx/Data Height 1.7 m Height (Calculated Centimeters) 170.2 Current Weight (lbs) 77.111 kg Weight (Calculated Kilograms) 77.1 Weight (Calculated Grams) 23822.7 [place] Body Weight 148 Body Mass Index (BMI) 26.6 Weight Status Overweight GI Symptoms GI Symptoms None Last BM 10/01 Difficult in: None Skin Integrity/Comment: dryness Current %PO Good (75-100%) Estimated Nutritional Goals BEE in Kcals: Using Current wt Calories/Kcals/Kg 23-27 Kcals Calculated 7817-5189 Protein: Using Current wt Protein g/k.8-1 Protein Calculated 61-77 Fluid: ml 1771-2079ml (1ml/kcal) Nutritional Problem No current Nutrition Prob Problem N/A Malnutrition Alert Is there a minimum of two criteria No selected? Query Text:Check all the applicable criteria. A minimum of two criteria are recommended for diagnosis of either severe or non-severe malnutrition. Malnutrition Related to Morbid Obesity Malnutrition related to morbid obesity No Intervention/Recommendation Comments 1. Continue with low sodium diet as ordered. 2. Monitor PO intake, wt, labs and skin integrity 3. F/U as low risk in 7 days Expected Outcomes/Goals Expected Outcomes/Goals 1. PO intake to meet at least 75% of nutritional needs. 2. Wt stability, skin to remain intact, labs to approach WNL.
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
== END 2018-10-04 18:30 | DRG 885 ==
LOC: ER 08:42 → GERO 10:31
PROVIDERS: ADMIT Psychiatry & Neurology Psychiatry; ATTEND Psychiatry & Neurology Psychiatry
DX: F29 Unspecified psychosis not due to a substance or known physiological condition (principal); N39.0 Urinary tract infection, site not specified; Z66 Do not resuscitate; F84.0 Autistic disorder; F03.90 Unspecified dementia, unspecified severity, without behavioral disturbance, psychotic disturbance, mood disturbance, and anxiety; G40.909 Epilepsy, unspecified, not intractable, without status epilepticus; I10 Essential (primary) hypertension; F39 Unspecified mood [affective] disorder; D64.9 Anemia, unspecified; F41.1 Generalized anxiety disorder; Z88.2 Allergy status to sulfonamides
CPT/HCPCS: 36415-UA; 71045-TC; 80053-TC; 80061-TC; 81001-TC; 83036-90; 84443-TC; 84484-TC; 85025-TC; 85610-TC; 85730-TC; 87086-90; 90732; 93005; Q0161; Z7610

== ENCOUNTER 2018-10-25 02:15 | Inpatient (IN) | payer MEDICARE, MEDICAID ==
--- NOTE | 2018-10-25 02:39 | ED Physician Chart ---
ED Chief Complaint/HPI - Patient Information Date Seen:: 10/25/18 Time Seen:: 02:30 Chief Complaint:: self-harm behavior History of Present Illness:: Patient for last few days has been banging his head against the wall. Allergies:: Allergies Allergy/AdvReac Type Severity Reaction Status Date / Time Sulfa (Sulfonamide Allergy Verified 09/28/18 08:47 Antibiotics) thioridazine [From Mellaril] Allergy Verified 09/28/18 08:47 Historian:: Patient Review:: Transfer documents Reviewed ED Review of Systems - Review of Systems General/Constitutional: No fever Skin: No skin lesions Head: No headache Eyes: No loss of vision ENT: No earache Neck: No neck pain, No swelling Cardio Vascular: No chest pain Pulmonary: No SOB GI: No nausea, No vomiting, No diarrhea G/U: No dysuria Musculoskeletal: No bone or joint pain Endocrine: No polyuria Psychiatric: Prior psych history Hematopoietic: No bruising Allergic/Immuno: No urticaria Neurological: No syncope, No focal symptoms ED Past Medical History - Past Medical History Past Medical History: Seizures, Other (history of urinary tract infection; history of psychosis history of depression history of anxiety; history of end- stage renal disease; history of insomnia; autism; history of cellulitis perineum ) Family History: Other (unavailable) Social History: Care Facility Surgical History: other (available) Psychiatricy History: Depression, Other (anxiety; autism; psychosis) Family Medical History - Family Member Mother History Unknown: Yes ED Physical Exam - Physical Examination General/Constitutional: Awake, Well-developed, well-nourished, Alert, No distress, GCS 15, Non-toxic appearing, Ambulatory Other Gen/Cons comments:: Alert and talkative; talks on the level of a young child Head: Atraumatic Eyes: Lids, conjuctiva normal, PERRL, EOMI Skin: Nl inspection, No rash, No skin lesions, No ecchymosis, Well hydrated, No lymphadenopathy ENMT: External ears, nose nl, Nasal exam nl, Lips, teeth, gums nl Other ENMT comments:: Poor dental hygiene Neck: Nontender, Full ROM w/o pain, No JVD, No nuchal rigidity, No bruit, No mass, No stridor Respiratory: Nl effort/Exclusion, Clear to Auscultation, No Wheeze/Rhonchi/Rales Cardio Vascular: RRR, No murmur, gallop, rubs, NL S1 S2 GI: No tenderness/rebounding/guarding, No organomegaly, No hernia, Normal BS's, Nondistended, No mass/bruits, No McBurney tenderness : No CVA tenderness Extremities: No tenderness or effusion, Full ROM, normal strength in all extremities, No edema, Normal digits & nails Neuro/Psych: Alert/oriented, DTR's symmetric, Normal sensory exam, Normal motor strength, Judgement/insight normal, Mood normal, Normal gait, No focal deficits Misc: Normal back, No paraspinal tenderness ED Labs/Radiology/EKG Results - Lab Results Results: Laboratory Results WBC 8.6 Th/cmm (4.8-10.8) 10/25/18 02:55 RBC 3.14 Mil/cmm (4.30-5.70) L 10/25/18 02:55 Hgb 10.2 gm/dL (12-16) L 10/25/18 02:55 Hct 30.2 % (41.0-60) L 10/25/18 02:55 MCV 96.2 fl (80-99) 10/25/18 02:55 MCH 32.4 pg (26.0-30.0) H 10/25/18 02:55 MCHC Differential 33.7 pg (28.0-36.0) 10/25/18 02:55 RDW 14.5 % (11.5-20.0) 10/25/18 02:55 Plt Count 274 Th/cmm (150-400) 10/25/18 02:55 MPV 6.8 fl 10/25/18 02:55 Neutrophils % 65.6 % (40.0-80.0) 10/25/18 02:55 Lymphocytes % 22.2 % (20.0-50.0) 10/25/18 02:55 Monocytes % 7.7 % (2.0-10.0) 10/25/18 02:55 Eosinophils % 3.7 % (0.0-5.0) 10/25/18 02:55 Basophils % 0.8 % (0.0-2.0) 10/25/18 02:55 Sodium 132 mEq/L (136-145) L 10/25/18 02:55 Potassium 3.8 mEq/L (3.5-5.1) 10/25/18 02:55 Chloride 103 mEq/L (98-107) 10/25/18 02:55 Carbon Dioxide 22.2 mEq/L (21.0-31.0) 10/25/18 02:55 Anion Gap 10.6 (7.0-16.0) 10/25/18 02:55 BUN 39 mg/dL (7-25) H 10/25/18 02:55 Creatinine 1.3 mg/dL (0.7-1.3) 10/25/18 02:55 Est GFR ( Amer) > 60.0 ml/min (>90) 10/25/18 02:55 Est GFR (Non-Af Amer) > 60.0 ml/min 10/25/18 02:55 BUN/Creatinine Ratio 30.0 10/25/18 02:55 Glucose 101 mg/dL (70-105) 10/25/18 02:55 Calcium 8.6 mg/dL (8.6-10.3) 10/25/18 02:55 Total Bilirubin 0.2 mg/dL (0.3-1.0) L 10/25/18 02:55 AST 13 U/L (13-39) 10/25/18 02:55 ALT 13 U/L (7-52) 10/25/18 02:55 Alkaline Phosphatase 106 U/L (34-104) H 10/25/18 02:55 Total Protein 5.9 gm/dL (6.0-8.3) L 10/25/18 02:55 Albumin 3.5 gm/dL (4.2-5.5) L 10/25/18 02:55 Globulin 2.4 gm/dL 10/25/18 02:55 Albumin/Globulin Ratio 1.5 (1.0-1.8) 10/25/18 02:55 Triglycerides 72 mg/dL (<150) 10/25/18 02:55 Cholesterol 188 mg/dL (<200) 10/25/18 02:55 LDL Cholesterol Direct 137 mg/dL (75-193) 10/25/18 02:55 HDL Cholesterol 47 mg/dL (23-92) 10/25/18 02:55 - EKG Interpretations Rate & Rhythm: normal sinus rhythm with a rate of 74 [place]: normal Comments:: Inverted T waves in V1 and V2 ED Septic Shock - . Is Septic Shock (SBP<90, OR Lactate>4 mmol\L) present?: No ED Reassessment (Disposition) - Reassessment Reassessment Condition:: Unchanged - Diagnosis Diagnosis:: Self-harm behavior; increased agitation; autism; seizure disorder - Patient Disposition Admitted to:: [facility] Admitting Medical Physician:: Jairo Lindquist Admitting Psych Physician:: Bill Ibarra Condition at Disposition:: Stable, Unchanged
[2018-10-25 03:00] LABS: % BASOPHILS 0.8 % (0.0-2.0); % EOSINOPHILS 3.7 % (0.0-5.0); % LYMPHOCYTES 22.2 % (20.0-50.0); % MONOCYTES 7.7 % (2.0-10.0); % NEUTROPHILS 65.6 % (40.0-80.0); BASOPHILE ABSOLUTE 0.1 Th/cumm (0-0.2); EOSINOPHILE ABSOLUTE 0.3 Th/cmm (0.1-0.4); HEMATOCRIT 30.2 % (41.0-60); HEMOGLOBIN 10.2 gm/dL (12-16); LYMPHOCYTE ABSOLUTE 1.9 Th/cmm (1.5-3.0); MEAN CELL VOLUME 96.2 fl (80-99); MEAN CORPUSCULAR HEMOGLOBIN 32.4 pg (26.0-30.0); MEAN CORPUSCULAR HGB CONC 33.7 pg (28.0-36.0); MEAN PLATELET VOLUME 6.8 fl; MONOCYTE ABSOLUTE 0.7 Th/cmm (0.3-1.0); NEUTROPHILE ABSOLUTE 5.6 Th/cmm (1.8-8.0); PLATELET COUNT 274 Th/cmm (150-400); RED BLOOD COUNT 3.14 Mil/cmm (4.30-5.70); RED CELL DISTRIBUTION WIDTH 14.5 % (11.5-20.0); WHITE BLOOD COUNT 8.6 Th/cmm (4.8-10.8)
[2018-10-25 03:21] LABS: ALB/GLOB RATIO 1.5 (1.0-1.8); ALBUMIN 3.5 gm/dL (4.2-5.5); ALKALINE PHOSPHATASE 106 U/L (34-104); ANION GAP 10.6 (7.0-16.0); BILIRUBIN,TOTAL 0.2 mg/dL (0.3-1.0); BUN - UREA NITROGEN 39 mg/dL (7-25); CALCIUM SERUM 8.6 mg/dL (8.6-10.3); CARBON DIOXIDE 22.2 mEq/L (21.0-31.0); CHLORIDE 103 mEq/L (98-107); CHOLESTEROL 188 mg/dL (<200); CREATININE - SERUM 1.3 mg/dL (0.7-1.3); GFR AFRICAN-AMERICAN > 60.0 ml/min (>90); GFR NON AFRICAN-AMERICAN > 60.0 ml/min; GLUCOSE 101 mg/dL (70-105); HDL -HIGH DENSITY LIPOPROTEIN 47 mg/dL (23-92); POTASSIUM SERUM 3.8 mEq/L (3.5-5.1); SGOT 13 U/L (13-39); SGPT/ALT 13 U/L (7-52); SODIUM SERUM 132 mEq/L (136-145); TOTAL PROTEIN,SERUM 5.9 gm/dL (6.0-8.3); TRIGLYCERIDES 72 mg/dL (<150)
[2018-10-25 04:30] VITALS: BP 139/73
[2018-10-25] MEDS ORDERED: Magnesium Hydroxide (MOM) 30 mL UDC PO PRN (04:34)
[2018-10-25] MEDS ORDERED: Maalox 30 mL Cup PO PRN (04:34)
[2018-10-25] MEDS: Multivitamin Tab PO SCH (08:23)
--- NOTE | 2018-10-25 11:01 | History & Physical ---
ADMIT DATE: 10/25/2018 MEDICAL HISTORY AND PHYSICAL PATIENT'S IDENTIFICATION: A 58-year-old male. CHIEF COMPLAINT: Unable to obtain. HISTORY SOURCE: Reviewing the chart, talking to the staff. HISTORY OF PRESENT ILLNESS: A 58-year-old male who resides in a prison, has a history of intellectual disability with autism, has a history of seizure disorder and psychotic disorder, noted by nursing staff that the patient was extremely agitated and hitting the wall. The patient was sent to Emergency Room where the patient was seen by Emergency Room MD and now being admitted to the hospital for the treatment. PAST MEDICAL HISTORY: Remarkable for, 1. Intellectual disability. 2. Autism. 3. Seizure disorder. 4. Psychotic disorder. 5. DJD. 6. History of fistula surgery. MEDICATIONS: At the time of transfer, the patient is taking multiple medications, which includes Tylenol, Thorazine, Lexapro, folic acid, lorazepam, magnesium, phenobarbital, promethazine, Seroquel, Ambien, Topamax. ALLERGIES: The patient is allergic to SULFA and THIORIDAZINE. SOCIAL HISTORY: The patient resides in a prison. No history of smoking cigarette, alcohol, or drug use. FAMILY MEDICAL HISTORY: Unavailable. REVIEW OF SYSTEMS: Unable to obtain from the patient. PHYSICAL EXAMINATION: GENERAL: A 58-year-old, alert, awake, lying in the bed, extremely agitated at times. VITAL SIGNS: Temperature 98.6, pulse is 76, respiratory rate 18, and blood pressure 139/73. HEENT: Normocephalic, atraumatic. Extraocular muscles are intact. Tongue was pink and coated. Poor dentition noted. No oral lesion noted. NECK: Supple, no JVD. No hepatojugular reflex. No lymphadenopathy, thyromegaly, or carotid bruit. HEART: Both heart sounds are regular. No S3, no S4, no murmur. CHEST AND LUNG: Equal in expansion, no expiratory wheezing. ABDOMEN: Soft. No guarding. No rigidity. Bowel sounds present. No palpable mass. EXTREMITIES: No edema, no cyanosis or clubbing. Peripheral pulses +2. No calf tenderness noted. NEUROLOGIC: Alert, awake, does not follow any command, but no facial asymmetry noted. Moving upper and lower extremities without any difficulty. AVAILABLE DIAGNOSTIC DATA: White count of 8.6, hemoglobin 10.2, platelet count of 274. BUN and creatinine is 13 and 1.3, potassium of 3.8, sodium 132, alkaline phosphatase is 106, albumin of 3.5. TSH 2.97. EKG has no ST-T change representing acute ischemia. Chest x-ray unavailable for my review. CLINICAL IMPRESSION: 1. Psychotic disorder exacerbation. 2. Normocytic normochromic anemia. 3. Seizure disorder. 4. Psychiatric disorder exacerbation. 5. Intellectual disability. 6. Unable to take care of himself. 7. Mild prerenal azotemia. PLAN: 1. Psychotic evaluation and management deferred to psychiatrist. 2. Seizure medication. 3. Seizure precaution. 4. Anemia work up. 5. Appropriate home medicine reconciliation. 6. Symptoms management. 7. General nursing care. 8. We will continue to follow this patient during the stay in the hospital. JOB# [id number]
--- NOTE | 2018-10-26 06:16 | Psychiatric Evaluation ---
DATE OF SERVICE: 10/25/2018 JUSTIFICATION FOR HOSPITALIZATION: Banging head against the wall, erratic behaviors. HISTORY OF PRESENT ILLNESS: A 58-year-old male, not talking to me, refusing interview, apparently coming in because he was banging against the wall, erratic behaviors dangerous behaviors, self-harming behaviors. Per documentation, history of anxiety, psychosis, unspecified, possibly autism spectrum disorder. Per nursing notes, coming in from [facility], banging head on the wall for the past 2 days, could not be cared for at a lower level of care. PAST PSYCHIATRIC HISTORY: Developmental disability. ALLERGIES: SULFA and THIORIDAZINE. SOCIAL HISTORY: As noted coming in from a senior care, unable to care for his basic needs. MEDICAL HISTORY: Please see full H and P. MENTAL STATUS EXAMINATION: Stated age, lying down, not talk to me, whatsoever. Sleeping, arousable, but refusing to talk to me. No overt SI or HI, unclear psychotic symptoms, very poor impulse control. PROVISIONAL DIAGNOSES: Schizoaffective disorder per history; autism spectrum; anxiety, unspecified; mood, unspecified; anxiety, unspecified. MEDICAL: Please see full H and P including seizure disorder. ESTIMATED LENGTH OF STAY: 7-10 days. ASSESSMENT: The patient requiring hospitalization, self-harming behaviors, aggressive behaviors toward self, cannot be cared for at a lower level. PLAN: We will restart medications. The patient is under the care of Dr. Umana. I am covering for her in her absence. Continue Thorazine, Lexapro, Seroquel, adjust medications as tolerated. CONDITIONS FOR DISCHARGE: Improved mood, improved affect, Decreased in self-harming behaviours,. JOB# [id number]
[2018-10-26] MEDS: Multivitamin Tab PO SCH (08:48)
[2018-10-27] MEDS: Multivitamin Tab PO SCH (09:00)
--- NOTE | 2018-10-27 10:09 | Progress Notes ---
DATE: 10/26/[address] Umana. SUBJECTIVE: ____ the patient was banging his head against a wall, traumatic behavior. History of developmental disability and schizophrenia. HOSPITAL COURSE: Ruminates, irritable, disengaged. MEDICATIONS REVIEW: Thorazine 200 mg p.o. b.i.d., Lexapro 10 mg a day, Ativan as needed, phenobarb, quetiapine 200 mg p.o. b.i.d., and Topamax 100 mg p.o. b.i.d. MENTAL EXAMINATION: Disorganized, delusional. ASSESSMENT AND PLAN: The patient is a 58-year-old male with history of schizoaffective disorder. I will continue with the current medications as he was recently initiated without complications ____ medication ____ discontinue. Ruminating, paranoid behavior that resulting banging his head, unable to formulate a safe plan outside the structured environment. JOB# [id number]
--- NOTE | 2018-10-27 21:46 | Progress Notes ---
DATE: 10/27/2018 SUBJECTIVE: Overnight the patient continues to need a lot of redirection, irritable and easily agitated. Today on [id number] evaluation, the patient continues to perseverate that he needs ice. No side effects to medication. MENTAL STATUS EXAMINATION: Disorganized, delusional, ruminating. ASSESSMENT AND PLAN: The patient is a 58-year-old male with a history of developmental disorder and schizoaffective disorder. We will continue with the current medication regimen to continue to reach steady state. Per the physician, the patient has been intermittently compliant with medication that appears to be given in the outside facility. The patient has tolerated medication now without complications or side effects to the medications. [facility]# [id number]
[2018-10-28] MEDS: Multivitamin Tab PO SCH (08:48)
--- NOTE | 2018-10-28 21:35 | Progress Notes ---
DATE: 10/28/2018 SUBJECTIVE: Case was discussed with staff of the patient, reviewed records. This is a 58-year-old male, who was admitted on 10/25/2018. His initial was done by Dr. Hollingsworth. He came because ____, very erratic, unable to participate in a meaningful conversation. When I talked to him, he was making statements that did not make sense. Staff report that he feel he is . He came from a intermediate facility. He is developmentally disabled. He was restarted on his medication, which is he is on chlorpromazine 200 mg twice a day and Lexapro 10 mg daily with no side effects, no sedation, and no nausea. He is also on phenobarbital. He has a seizure disorder. He is on Seroquel 200 mg twice a day and Topamax 100 mg twice a day with no side effects, no sedation, and no nausea. His lab work showed his CBC with low hemoglobin, low hematocrit. He has a low sodium level, high BUN, low total bilirubin, and low total protein and albumin. His phenobarb level 18.5, which is within acceptable therapeutic range. TSH is within normal range. RPR is nonreactive. We will continue to work with the patient in group therapy, milieu therapy, and adjust the medications as needed. JOB# [id number]
[2018-10-29] MEDS: Multivitamin Tab PO SCH (09:25)
--- NOTE | 2018-10-29 19:27 | Progress Notes ---
DATE: IDENTIFICATION: A 58-year-old male. SUBJECTIVE: The patient seen and examined. The patient is lying in the bed. Unable to get any meaningful history from the patient. PHYSICAL EXAMINATION: VITAL SIGNS: Temperature 97, pulse is 64, respiratory rate 18, blood pressure 130/80. HEENT: Poor dentition. NECK: Supple, no JVD. HEART: Regular. CHEST: Lungs equal in expansion, no expiratory wheezing. ABDOMEN: Soft. EXTREMITIES: No edema. NEUROLOGIC: Alert, awake, follows commands. CLINICAL IMPRESSION: 1. Psychotic disorder. 2. Seizure disorder. 3. Intellectual disorder. 4. Unable to take care of himself. 5. Degenerative joint disease. PLAN: 1. Psych medication and psych followup. 2. Seizure medication. 3. Seizure precaution. 4. General nursing care. 5. Symptoms management. 6. Care plan reviewed and discussed with staff. JOB# [id number]
--- NOTE | 2018-10-29 20:12 | Progress Notes ---
DATE: 10/29/2018 SUMMARY: Case was discussed with staff of the patient and reviewed records. The patient has been agitated. He continues to have poor insight, throwing things at staff, unpredictable, impulsive, needing redirection. He has been compliant with the medication with no side effects, no sedation, and no nausea. I will be increasing his Seroquel to 225 mg twice a day. No side effects with the medication, no sedation, no nausea, no extrapyramidal symptoms. We will continue outpatient group therapy, milieu therapy, and adjust the medication as needed. JOB# [id number]
[2018-10-30] MEDS: Multivitamin Tab PO SCH (10:38)
--- NOTE | 2018-10-30 11:03 | Progress Notes ---
DATE: 10/30/2018 FOLLOWUP CONSULT NOTE Case was discussed with staff of the patient, reviewed records. The patient continues to be inappropriate. He believes he is . Continues to be confused, very poor insight. Continues to be irritable with episodes of agitation, irritability. He is tolerating increase in Seroquel with no side effects, no sedation, no nausea and no extrapyramidal symptoms, sleeping well, eating well. No side effects of the medication, no sedation, no nausea. We will continue to work with the patient in group therapy, milieu therapy, adjust medication as needed. JOB# [id number]
[2018-10-31] MEDS: Multivitamin Tab PO SCH (08:43)
--- NOTE | 2018-10-31 14:06 | Progress Notes ---
DATE: 10/31/2018 Case was discussed with staff of the patient, reviewed records. The patient continues to have poor insight. Continues to be unable to make safe plan for self-care. Continues to be unpredictable, impulsive, needing redirection. He is developmentally disabled. He tolerated the increase in his Seroquel with no side effects, no sedation, no nausea, no extrapyramidal symptoms. We will continue to work with the patient in group therapy, milieu therapy, and adjust the medication as needed. JOB# [id number]
[2018-11-01] MEDS: Multivitamin Tab PO SCH (09:49)
--- NOTE | 2018-11-02 01:47 | Progress Notes ---
DATE: 11/01/2018 Case was discussed with staff of the patient, reviewed records. The patient continues to stay in bed, isolating himself with episodes of agitation and irritability. He is compliant with the medication with no side effects, no sedation, no nausea, no extrapyramidal symptoms. Continues to have episodes of extreme agitation, I will be increasing Seroquel to 250 mg twice a day and to improve his behavior and psychotic symptoms we will continue the patient in group therapy, milieu therapy, and adjust the medication as needed. JOB# [id number]
--- NOTE | 2018-11-02 07:45 | Progress Notes ---
DATE: 11/02/2018 SUBJECTIVE: A 58-year-old male, currently in the hospital, ruminative, irritable, asking for things from the staff, the staff give him things and he continues to ask for things again, repetitive, intrusive, ongoing concerns about his behaviors, mostly confused, keeps to himself, irritated, repetitive, loud. ASSESSMENT: The patient with ongoing behavioral disturbances, repetitive behaviors, ruminative. PLAN: We will continue to monitor. The patient may benefit from dosing of antidepressant medications. We will increase dosing of Lexapro. JOB# [id number]
[2018-11-02] MEDS: Multivitamin Tab PO SCH (10:39)
--- NOTE | 2018-11-03 07:29 | Progress Notes ---
DATE: 11/03/2018 DATE OF SERVICE: 11/03/2018 SUBJECTIVE: A 58-year-old male, more amenable to interview, but not making any sense, noting that he , talking about "driving a mini", "driving a mini", just repeats himself. It seems that he has autism spectrum disorder, mostly withdrawn, isolative, concerns about behavioral disturbances. Slept about 7 hours, needing a lot of redirection, noted to be irritable, very repetitive. Keeps asking for things when he already has them, such as . Medications were noted. ASSESSMENT: The patient is repetitive, ongoing safety concerns, concerns about impulsivities. We will continue to monitor. [facility]# [id number]
[2018-11-03] MEDS: Multivitamin Tab PO SCH (09:26)
[2018-11-04] MEDS: Multivitamin Tab PO SCH (09:04)
--- NOTE | 2018-11-05 03:10 | Progress Notes ---
DATE: 11/04/2018 SUMMARY: Case is discussed with staff of the patient and reviewed records. The patient is confused, unable to make safe plan for self-care, delusional, talking about stuff that does not exist. He is mentally retarded. We are waiting to hear from the [facility] about what to expect, what placement to go to. His Lexapro was increased over the weekend to [address] Hollingsworth. He is on Seroquel, I increased to 250 mg twice a day, and Topamax 100 mg twice a day with no side effects, no sedation, no nausea, and no extrapyramidal symptoms. We will continue to work with the patient in group therapy, milieu therapy, and adjust the medications as needed. JOB# [id number]
[2018-11-05] MEDS: Multivitamin Tab PO SCH (08:08)
--- NOTE | 2018-11-06 00:20 | Progress Notes ---
DATE: 11/05/2018 SUBJECTIVE: Case was discussed with staff of the patient, reviewed records. The staff reported they cannot really placed him yet because the [facility] is making that decision. He continues to be delusional, has to have liquids in front of him. He continues to make statements that are completely delusional, sometimes thinks he is . He continues to be unable to make safe plan for self-care. No side effects with the medication, no sedation, no nausea, and no acting out behavior. He tolerated the increase in Lexapro and Seroquel with no side effects, no sedation, no nausea, and no extrapyramidal symptoms. We will continue to work with the patient in group therapy, milieu therapy, and adjust the medications as needed. JOB# [id number]
[2018-11-06] MEDS: Multivitamin Tab PO SCH (08:47)
--- NOTE | 2018-11-06 21:45 | Progress Notes ---
DATE: 11/06/2018 SUBJECTIVE: Case was discussed with staff of the patient, reviewed records. The patient continues to have poor insight. He continues to be unable to make safe plan for self-care. Apparently, he does have issues with mutilating himself. He does have degenerative joint disease, seizure disorder. So far, he is compliant with the medication with no side effects, no sedation, no nausea, and no extrapyramidal symptoms. Waiting for the [facility] to make a decision on him. The staff report that he tend to mutilate himself at times. No side effects with the medication, no sedation, no nausea, and no extrapyramidal symptoms. We will continue to work with the patient in group therapy, milieu therapy, and adjust the medication as needed. His phenobarbital level was 18.5, which is within acceptable therapeutic range. JOB# [id number]
[2018-11-07] MEDS: Multivitamin Tab PO SCH (08:29)
--- NOTE | 2018-11-07 08:35 | Progress Notes ---
DATE: 11/06/2018 IDENTIFICATION: A 58-year-old male. SUBJECTIVE: The patient was seen and examined. The patient was sitting in the chair, more cooperative, unable to get meaningful history from the patient. Discussed with nursing staff about their consents. No seizure activity noted. Able to eat by himself. PHYSICAL EXAMINATION: VITAL SIGNS: Temperature 98.3, pulse 74, respiratory rate 16, blood pressure 140/70. HEENT: No facial asymmetry. Poor dentition noted. NECK: Supple, no JVD. HEART: Regular. CHEST: Lung equal in expansion, no expiratory wheezing. ABDOMEN: Soft. No guarding or rigidity. Bowel sounds are present. No palpable mass. EXTREMITIES: No edema. CLINICAL IMPRESSION: 1. Seizure disorder 2. Psychotic disorder. 3. Degenerative joint disease. 4. Intellectual disability. PLAN: 1. Psych medication and psych followup. 2. Seizure medication. 3. Seizure precaution. 4. Nutritional support. 5. General nursing care. 6. Follow lab. 7. Care plan reviewed and discussed with staff. JOB# [id number]
[2018-11-08] MEDS: Multivitamin Tab PO SCH (09:54)
--- NOTE | 2018-11-08 16:58 | Progress Notes ---
DATE: 11/07/2018 SUBJECTIVE: Case was discussed with staff of the patient, reviewed records. The patient continues to have poor insight, isolating in his bed and not communicating. He is developmentally disabled. He is sleeping well, eating well. He denies any intent to harm self or anybody. Working on [facility] is making that decision. No side effects with the medication, no sedation, no nausea, no extrapyramidal symptoms. We will continue to work with the patient in group therapy, milieu therapy, adjust medication as needed. JOB# [id number]
--- NOTE | 2018-11-08 20:13 | Progress Notes ---
DATE: 11/08/2018 Case was discussed with staff of the patient and reviewed records. The patient continues to isolate himself, mentally disabled. The [facility] is working on finding the patient a placement. The patient is sleeping well and eating well. He is tolerating increase in Lexapro with no side effects. I will be increasing the dose further to 20 mg a day because of his depression. No side effects of the medication, no sedation, no nausea, no extrapyramidal symptoms. He is tolerating increase in Seroquel as well that was done on 11/01, last week. I will continue the patient in group therapy, milieu therapy, adjust medication as needed. JOB# [id number]
[2018-11-09] MEDS: Multivitamin Tab PO SCH (08:55)
--- NOTE | 2018-11-10 00:27 | Progress Notes ---
DATE: 11/09/2018 SUBJECTIVE: The patient was seen and evaluated. The patient's chart reviewed. This is Dr. Joaquin covering for Dr. Umana. The patient continues to be isolative, currently [facility] is working very closely to find placement. Today on [id number] evaluation, continues to be preoccupied only about one thing, he desired more ice. Current medications reconciliation reviewed; Thorazine 200 mg p.o. b.i.d., Lexapro 20 mg recently augmented, phenobarbital, and also on quetiapine 250 mg b.i.d. with Topamax. We will continue with primary psychiatrist's treatment plan and goals as no side effects have been noted to observe, unclear which psychotropic medications being titrated. We will continue monitoring in the meantime. JOB# [id number]
[2018-11-10] MEDS: Multivitamin Tab PO SCH (08:34)
[2018-11-11] MEDS: Multivitamin Tab PO SCH (09:00)
--- NOTE | 2018-11-11 11:57 | Progress Notes ---
DATE: 11/10/[address] Umana. Today on [id number] evaluation ____ (ruminates), difficult to engage in a linear conversation, irritable. MENTAL STATUS EXAMINATION: Stable from yesterday. ASSESSMENT AND PLAN: The patient has still poor impulse disorder, aggressive behavior. He continues to perseverate about ____ if he does not get it, he becomes more agitated. We will continue with the current psychotropic medications and continue with primary psychiatric and goals. She will be returning to provide further psychiatric treatment. JOB# [id number]
--- NOTE | 2018-11-12 01:12 | Progress Notes ---
DATE: 11/11/2018 SUBJECTIVE: Case was discussed with staff of the patient, reviewed records. The patient continues to isolate himself. He continues to be unable to partake in meaningful conversation. He is developmentally disabled. We are waiting a placement to come from the [facility] as we can place him. He tolerated the increase in Lexapro to 20 mg a day with no side effects. He is also on Seroquel 250 mg twice a day. No sedation, no nausea, and no extrapyramidal symptoms. We will continue to work with the patient in group therapy, milieu therapy, and adjust the medications as needed. JOB# [id number]
[2018-11-12] MEDS: Multivitamin Tab PO SCH (08:38)
--- NOTE | 2018-11-12 17:06 | Progress Notes ---
DATE: 11/12/2018 Case was discussed with staff of the patient, reviewed records. The patient has been acting labile. He is developmentally disabled. He is sleeping well, waiting for discharge plan from the [facility]. He has limited insight. Unable to make safe plan for self-care, unpredictable, impulsive. No side effects with the medication, no sedation, no nausea, no extrapyramidal symptoms. We will continue the patient in group therapy, milieu therapy, and adjust medications as needed. JOB# [id number]
[2018-11-13] MEDS: Multivitamin Tab PO SCH (08:28)
--- NOTE | 2018-11-13 20:58 | Discharge Summary ---
DATE OF DISCHARGE: 11/13/2018 IDENTIFYING INFORMATION: The patient is a 58-year-old male. HISTORY OF PRESENT ILLNESS: The patient was referred from [facility] because of banging against a wall, abrupt behavior, refusing interview. He is developmentally is able, unable to make safe plan for self-care. He is well-known case to me as he was admitted here back in 09/2018 for similar reason. He is allergic to SULFA AND THIORIDAZINE. COURSE IN THE HOSPITAL: The patient was started back on his medication, which was Seroquel. The dose was increased to 250 mg twice a day because of agitation and irritability. Also, he was on Lexapro increased to 20 mg daily as well. He was also on chlorpromazine kept on 200 mg twice a day. The patient progressively got better. We had to keep him longer because [facility] wanted him to be placed and they came back today and they said that they could not find a appropriate placement for him, so they decided he needed to go back where he was, which is at [facility] and so the patient improved. He was not acting out. He was sleeping well, eating well. We felt, he no longer meeting criteria for further inpatient treatment and ready to go to a lesser level of care. FINAL DIAGNOSES: Schizoaffective disorder, developmental disability and [id number] mental retardation. MEDICAL DIAGNOSES: As per medical doctor. The patient will follow up with the psychiatrist, primary care physician and therapist at the [facility]. [facility]# [id number]
== END 2018-11-13 18:35 | DRG 885 ==
LOC: ER 02:15 → GERO 03:35
PROVIDERS: ADMIT Psychiatry & Neurology Psychiatry; ATTEND Psychiatry & Neurology Psychiatry
DX: F25.9 Schizoaffective disorder, unspecified (principal); N18.9 Chronic kidney disease, unspecified; F71 Moderate intellectual disabilities; F84.0 Autistic disorder; F41.9 Anxiety disorder, unspecified; F39 Unspecified mood [affective] disorder; D64.9 Anemia, unspecified; G40.909 Epilepsy, unspecified, not intractable, without status epilepticus; M19.90 Unspecified osteoarthritis, unspecified site; Z66 Do not resuscitate
CPT/HCPCS: 36415-UA; 80053-TC; 80061-TC; 80184-TC; 83036-90; 84443-TC; 85025-TC; 86592-TC; 93005; Q0161; Z7610